=== PATIENT | female | born 1940 | race Caucasian/White ===

== ENCOUNTER 2016-08-18 17:24 | Inpatient (IN) | payer OTHER, MEDICARE ==
[~2016-08-18] VITALS: Ht 162.6 cm; Wt 131.5 kg
[~2016-08-18 17:24] MED LIST: AMLODIPINE10 MG PO; ATORVASTATIN CA40 MG PO; CEPHALEXIN500 MG PO; CIPRO 500MG TA500 MG PO; CLINDAMYCIN150 MG PO; CLOPIDOGREL75 MG PO; COREG 3.125M3.125 MG PO; COREG CR10 MG PO; FLUOXETINE HYDR20 MG PO; FUROSEMIDE20 MG PO; GLUMETZA500 MG PO; LEVOTHYROXINE0.15 M1 PO; PERCOCET 325 MG1 TA2 PO; VALSARTAN320 MG PO; VICTOZA6 MG/ML SC; VITAMIN D1000 IU PO; VITAMIN D50000 IU PO
--- NOTE | 2016-08-18 17:34 | NUR ---
PER PT ARRIVES FROM HOME VIA EMS FOR CHRONIC LLE SWELLING PER PT USUALLY NEEDS ANTIBIOTICS WHEN THIS HAPPENS. PER PT GOING ON X 2 MONTHS AND TRAVELING UP L LEG PT REPORTS VENOUS INSUFFIENCY. BILAT LOWER LEGS SWOLLEN L>R
[2016-08-18] MEDS ORDERED: AMLODIPINE BESY10 M1 PO (19:22)
[2016-08-18] MEDS ORDERED: VALSARTAN320 M1 PO (19:22)
[2016-08-18] MEDS ORDERED: CLOPIDOGREL75 M1 PO (19:23)
[2016-08-18] MEDS ORDERED: LEVOTHYROXINE150 MCG PO (19:23)
[2016-08-18] MEDS ORDERED: METFORMIN HCL500 M5 PO (19:23)
[2016-08-18] MEDS ORDERED: FUROSEMIDE40 M1 PO (19:24)
[2016-08-18] MEDS ORDERED: FLUOXETINE HCL20 M2 PO (19:24)
[2016-08-18] MEDS ORDERED: ATORVASTATIN CA40 M1 PO (19:27)
--- NOTE | 2016-08-18 19:28 | NUR ---
BRENDEN Estrella IN FOR EVAL
--- NOTE | 2016-08-18 19:35 | ED SKIN/ALLERGY COMPLAINT ---
History of Present Illness General Chief Complaint: Lower Extremity Problems Stated Complaint: BIBA LEG PAIN Source: patient, family, old records Exam Limitations: no limitations Vital Signs & Intake/Output Vital Signs & Intake/Output Vital Signs Date Time Temp Pulse Resp B/P Pulse O2 O2 Flow FiO2 Ox Delivery Rate 08/18 2236 96.8 80 18 168/94 93 Room Air 08/18 2118 100 Room Air 08/18 1737 97.4 77 20 133/93 96 Allergies Coded Allergies: latex (Severe, RASH 08/02/15) lactose (Severe, DIARRHEA 08/02/15) Reconcile Medications Amlodipine Besylate 10 MG TABLET 1 TAB PO DAILY BP (Reported) Amoxicillin/Clavulanate Potass (Amox-Clav 875-125 MG Tablet) 875 MG-125 MG TABLET 875 MG PO Q12 skin infection Atorvastatin Calcium 40 MG TABLET 1 TAB PO DAILY CHOLESTEROL (Reported) Carvedilol Phosphate (Coreg Cr) 10 MG CPMP.24HR 1 CAP PO DAILY HEART/BP ( Reported) Clopidogrel Bisulfate (Clopidogrel) 75 MG TABLET 1 TAB PO DAILY BLOOD THINNER (Reported) Ergocalciferol (Vitamin D2) (Vitamin D2) 50,000 UNIT CAPSULE 1 CAP PO AD SUPPLEMENT (Reported) Fluoxetine HCl 20 MG CAPSULE 1 CAP PO DAILY MENTAL HEALTH (Reported) Furosemide 40 MG TABLET 1 TAB PO DAILY DIURETIC (Reported) Levothyroxine Sodium 150 MCG TABLET 1 TAB PO DAILY THYROID (Reported) Liraglutide (Victoza 3-Bang) 0.6 MG/0.1 ML (18 MG/3 ML) PEN.INJCTR 1.2 MG SC DAILY DM (Reported) Metformin HCl (Metformin HCl ER) 500 MG [id number] 1 TAB PO BID DM (Reported) Valsartan 320 MG TABLET 1 TAB PO DAILY BP (Reported) Triage Note: PER PT ARRIVES FROM HOME VIA EMS FOR CHRONIC LLE SWELLING PER PT USUALLY NEEDS ANTIBIOTICS WHEN THIS HAPPENS. Triage Nurses Notes Reviewed? 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 She has had pain redness and swelling for a few days which is getting worse, she denies any fever or flulike illness. She is having several areas of the left lower extremity lateral anterior aspect with open wounds that are oozing serous fluid and sticking to her close. Her sons are here and state that her leg is much more swollen than usual, more red warmth to touch and is moderately painful to palpation. She denies any fever or flulike illness. She has been admitted here in the past several times for same. (XAVIER HARRIS) Past History Travel History Traveled to [place] past 21 day No Medical History Any Pertinent Medical History? 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 No (XAVIER HARRIS) Review of Systems Review of Systems Constitutional: Reports: no symptoms. EENTM: Reports: no symptoms. Respiratory: Reports: no symptoms. Cardiovascular: Reports: no symptoms. GI: Reports: no symptoms. Genitourinary: Reports: no symptoms. Neurological/Psychological: Reports: no symptoms. Hematologic/Endocrine: Reports: no symptoms. Immunologic/Allergic: Reports: no symptoms. All Other Systems: Reviewed and Negative (XAVIER HARRIS) Physical Exam Physical Exam General Appearance: well developed/nourished Respiratory: normal breath sounds, chest non-tender, no respiratory distress Cardiovascular: regular rate/rhythm Comments: Well-developed well-nourished no apparent distress. HEENT: Atraumatic, extraocular motion intact Neck: Supple, no lymphadenopathy Back: Nontender Respiratory: No respiratory distress Abdomen: Obese Extremities: Mild edema right lower extremity 3+ edema pitting left lower extremity with chronic skin changes, skin sloughing, several small open wounds to the anterior and lateral lower leg that is oozing serous fluid. Significant warmth and intense erythema with tenderness along the mid anterior lateral and proximal portion of the lower leg. Neurovascularly intact. Neuro: Alert and oriented x3 Psych: Mood affect normal, normal memory normal judgment. Skin: Warm and dry, no rash on exposed skin (XAVIER HARRIS) Progress Differential Diagnosis: abscess/cellulitis, allergic reaction, anaphylaxis, angioedema, asthma, contact dermatitis, drug reaction, erythema multiforme, lyme disease, meningitis/sepsis, piyriasis rosea, RMSF, scarlet fever, shingles, syphilis/gonococcemia, toxic shock syndrome, urticaria, DVT/PE Plan of Care: Orders Procedure Date/time Status Consistent Carbohydrate 2 08/19 B Active LACTIC ACID 08/18 2230 Active Patient Data 08/19 2211 Active OXYGEN SETUP (GEN) 08/19 1955 Active Saline Lock 08/19 1955 Active Admit to inpatient 08/19 1955 Active Vital Signs 08/19 1955 Active Activity/Ambulation 08/19 1955 Active Code Status 08/19 1955 Active Saline Lock 08/18 1930 Active BLOOD CULTURE 08/18 1930 Active LACTIC ACID 08/18 1930 Complete COMPREHENSIVE METABOLIC PANEL 08/18 1930 Complete CBC WITHOUT DIFFERENTIAL 08/18 1930 Complete EKG 08/18 1930 Active Intake & Output 08/19 1855 Active Laboratory Tests 08/18/162215: Anion Gap 11, Estimated GFR > 60, BUN/Creatinine Ratio 23.3, Glucose 139 H, Lactic Acid 1.3, Calcium 9.2, Total Bilirubin 0.7, AST 15, ALT 38, Alkaline Phosphatase 89, Total Protein 7.0, Albumin 3.9, Globulin 3.1, Albumin/Globulin Ratio 1.3 08/18/162044: CBC w Diff NO MAN DIFF REQ, RBC 5.27, MCV 83.5, MCH 28.5, RDW 13.9, MPV 9.5, Gran % 69.0, Lymphocytes % 20.9, Monocytes % 7.1, Eosinophils % 2.2, Basophils % 0.8, Absolute Granulocytes 6.1, Absolute Lymphocytes 1.9, Absolute Monocytes 0.6 , Absolute Eosinophils 0.2, Absolute Basophils 0.1, PUBS MCHC 34.1 Microbiology 08/18 2044 BLOOD: Blood Culture - RECD 08/18 2029 BLOOD: Blood Culture - RECD Initial ED EKG: NSR, rate (80), no ST T wave changes, abnormal Q waves Prior EKG: unchanged Rhythm Strip: normal sinus rhythm Comments: Treated with 1 g of Ancef IV 40 mg of Lasix IV Elevation of the leg Discussed with Dr. Vu, will admit for cellulitis (XAVIER HARRIS) Departure Departure Disposition: STILL A PATIENT Condition: Stable Clinical Impression Primary Impression: Cellulitis of left lower extremity without foot Secondary Impressions: Edema, lower extremity Qualifiers: Laterality: left Qualified Code: R60.0 - Localized edema Referrals: ELDER VU MD (PCP/Family) Departure Forms: Customer Survey General Discharge Information Prescriptions: Current Visit Scripts Amoxicillin/Clavulanate Potass (Amox-Clav 875-125 MG Tablet) 875 MG PO Q12 #5 TAB Admission Note Spoke With: ELDER VU MD Documentation of Exam: Documentation of any treatments & extenuating circumstances including Concerns Regarding Discharge (functional status, medication knowledge or non-compliance, living conditions, etc.) that warrant an admission rather than observation: Patient with severe edema left lower extremity and cellulitis with open weeping wounds. She requires elevation, IV Lasix, IV antibiotics. She has had this multiple times in the past does not improve on pills alone. (XAVIER HARRIS) PA/LITHOGRAPHIC ETCHER Co-Sign Statement Statement: ED Attending supervision documentation- x I saw and evaluated the patient. I have also reviewed all the pertinent lab results and diagnostic results. I agree with the findings and the plan of care as documented in the PA's/LITHOGRAPHIC ETCHER's documentation. [] I have reviewed the ED Record and agree with the PA's/LITHOGRAPHIC ETCHER's documentation. [] Additions or exceptions (if any) to the PAs/LITHOGRAPHIC ETCHER's note and plan are summarized below: [] (SARAI GARG,TESSA)
--- NOTE | 2016-08-18 19:56 | NUR ---
PT IN CHANGED BY THIS RN AND MST ISABELLA.
[2016-08-18] MEDS ORDERED: VITAMIN D250000 UNIT PO (20:00)
[2016-08-18] MEDS ORDERED: COREG CR10 M1 PO (20:00)
[2016-08-18] MEDS ORDERED: ONETOUCH LANCE1 EACH SC (20:01)
[2016-08-18] MEDS ORDERED: VICTOZA 3-0.6 MG/0.1 SC (20:15)
--- NOTE | 2016-08-18 20:52 | NUR ---
IV ACCESS ESTABLISHED BY FABIOLA MENEZES#22, LABS DRAWN AND SENT (SST, LAV, ROMERO) BLOOD CULTURES COLLECTED AND SENT
[2016-08-18 21:02] LABS: ABSOLUTE EOSINOPHIL COUNT 0.2 /CUMM (0.0-0.7); RBC DISTRIBUTION WIDTH 13.9 % (11.5-14.5)
[2016-08-18 21:04] LABS: ABSOLUTE BASOPHIL COUNT 0.1 /CUMM (0.0-0.2); ABSOLUTE GRANULOCYTE CT 6.1 /CUMM (1.4-6.5); ABSOLUTE LYMPH COUNT 1.9 /CUMM (1.2-3.4); ABSOLUTE MONOCYTE COUNT 0.6 /CUMM (0.10-0.60); BASOPHIL % 0.8 % (0.0-2.0); EOSINOPHIL % 2.2 % (0-5); MEAN CORPUSCULAR HGB 28.5 PG (27.0-31.0); MEAN CORPUSCULAR HGB CONC 34.1 G/DL (33.0-37.0); MEAN CORPUSCULAR VOLUME 83.5 FL (81.0-99.0); MEAN PLATELET VOLUME 9.5 FL (7.4-10.4); RED BLOOD CELL CT 5.27 /CUMM (4.20-5.40); WHITE BLOOD CELL COUNT 8.8 /CUMM (4.8-10.8)
[2016-08-18 21:12] LABS: PLATELET COUNT 195 /CUMM (130-400)
--- NOTE | 2016-08-18 21:17 | NUR ---
PT MEDICATED WITH 40MG LASIX IV AND KEFZOL PER EMAR.
--- NOTE | 2016-08-18 21:18 | NUR ---
PER LAB, SST AND ROMERO NEED TO BE REDRAWN.
--- NOTE | 2016-08-18 22:00 | Admission Certification ---
Admission Certification Certification Statement - As attending physician, I certify that at the time of - admission, based on clinical presentation, severity of - symptoms, need for further diagnostic testing and - therapeutic interventions, and risk of adverse outcomes - without in-hospital treatment, in my clinical assessment, - this patient requires an acute hospital stay for a minimum - of two nights or longer. I have also considered psychsocial - factors such as support system, advanced age, financial - issues, cognitive issues, and failed out-patient treatments, - past re-admission history, safety of patient, and lack of - compliance as applicable. Specific rationale supporting this admission is: Recurrent cellulitis of the left leg not responding to by mouth antibiotics
--- NOTE | 2016-08-18 22:03 | PN- Att Addend ---
Attending Addendum Attending Brief Note 75-year-old white female many comorbidities and has had problems with her left leg swollen and red and open areas was treated with oral antibiotics but it doesn't seem to be getting any better leg is still red and swollen with scabs. Despite the white count being normal H and has a lot of symptoms but will admit get IV antibiotics check leg ultrasound, get a wound consult and keep the leg elevated. Laboratory Tests 08/18 2044 Hematology CBC w Diff NO MAN DIFF REQ WBC (4.8 - 10.8 /CUMM) 8.8 RBC (4.20 - 5.40 /CUMM) 5.27 Hgb (12.0 - 16.0 G/DL) 15.0 Hct (37 - 47 %) 44.0 MCV (81.0 - 99.0 FL) 83.5 MCH (27.0 - 31.0 PG) 28.5 RDW (11.5 - 14.5 %) 13.9 Plt Count (130 - 400 /CUMM) 195 MPV (7.4 - 10.4 FL) 9.5 Gran % (42.2 - 75.2 %) 69.0 Lymphocytes % (20.5 - 51.1 %) 20.9 Monocytes % (1.7 - 9.3 %) 7.1 Eosinophils % (0 - 5 %) 2.2 Basophils % (0.0 - 2.0 %) 0.8 Absolute Granulocytes (1.4 - 6.5 /CUMM) 6.1 Absolute Lymphocytes (1.2 - 3.4 /CUMM) 1.9 Absolute Monocytes (0.10 - 0.60 /CUMM) 0.6 Absolute Eosinophils (0.0 - 0.7 /CUMM) 0.2 Absolute Basophils (0.0 - 0.2 /CUMM) 0.1 PUBS MCHC (33.0 - 37.0 G/DL) 34.1
--- NOTE | 2016-08-18 22:19 | NUR ---
PT HAS A REDRAW SST,ROMERO
--- NOTE | 2016-08-18 22:54 | NUR ---
PT TO ROOM 207 BED 1
--- NOTE | 2016-08-18 22:55 | NUR ---
SEEN BY HOUSE STAFF
--- NOTE | 2016-08-18 22:59 | History & Physical ---
See Addendum JON GARG,JERAMYMaurice 08/18/16 4187: General Information and HPI MD Statement: I have seen and personally examined NUNU JONES and documented this H&P. The patient is a 75 year old F who presented with a patient stated chief complaint of [lower extremity erythema and swelling]. Source of Information: patient, family, old records Exam Limitations: no limitations History of Present Illness: This is a 75-year-old female with past medical history significant for left lower extremity venous insufficiency, diabetes, depression, both thyroidism, alcoholic hepatitis, current cellulitis, CVA in A. fib, hypertension, hyperlipidemia who comes in with chief complaint of worsening swelling and erythema in left lower extremity. Patient's son was at bedside and was able to corroborate much of the history. He wanted to see his mother today and noted that her leg was more "oozing and weepy," than usual. She has chronic erythema and swelling of her left lower extremity. In speaking with the patient, it seems like the erythema and swelling is at her baseline or even less, however she has some open sores and wounds leaking serous fluid which seems to be in new development. Patient denies any fever, shortness of breath, chest pain, change in her bowel movements. The extremity is tender to palpation but other than the increase in secretion patient states she has not noticed any change in her left lower extremity. She states that she has been evaluated by a vascular surgeon and etiology of erythema and swelling was thought to be venous insufficiency. She does not use compression stockings and is not on any suppressive antibiotics. Allergies/Medications Allergies: Coded Allergies: latex (Severe, RASH 08/02/15) lactose (Severe, DIARRHEA 08/02/15) Home Med list Amlodipine Besylate 10 MG TABLET 1 TAB PO DAILY BP (Reported) Atorvastatin Calcium 40 MG TABLET 1 TAB PO DAILY CHOLESTEROL (Reported) Carvedilol Phosphate (Coreg Cr) 10 MG CPMP.24HR 1 CAP PO DAILY HEART/BP ( Reported) Clopidogrel Bisulfate (Clopidogrel) 75 MG TABLET 1 TAB PO DAILY BLOOD THINNER (Reported) Ergocalciferol (Vitamin D2) (Vitamin D2) 50,000 UNIT CAPSULE 1 CAP PO AD SUPPLEMENT (Reported) Fluoxetine HCl 20 MG CAPSULE 1 CAP PO DAILY MENTAL HEALTH (Reported) Furosemide 40 MG TABLET 1 TAB PO DAILY DIURETIC (Reported) Levothyroxine Sodium 150 MCG TABLET 1 TAB PO DAILY THYROID (Reported) Liraglutide (Victoza 3-Bang) 0.6 MG/0.1 ML (18 MG/3 ML) PEN.INJCTR 1.2 MG SC DAILY DM (Reported) Metformin HCl (Metformin HCl ER) 500 MG [id number] 1 TAB PO BID DM (Reported) Valsartan 320 MG TABLET 1 TAB PO DAILY BP (Reported) Compliance With Home Meds: UNKNOWN Past History Travel History Traveled to [place] past 21 day No Medical History Neurological: CVA EENT: NONE Cardiovascular: AFIB, hypertension, hyperlipidemia Respiratory: NONE Gastrointestinal: alcoholic hepatitis Hepatic: NONE Renal: NONE Musculoskeletal: CELLULITIS Psychiatric: depression Endocrine: diabetes, hypothyroidism Blood Disorders: NONE Cancer(s): NONE 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 self Services at Home: NO SERVICES AT THIS TIME Primary Language: Iranian Functional Ability ADLs Independent: dressing, eating, toileting, bathing. Ambulation: walker IADLs Independent: shopping, housework, finances, food prep, telephone, transportation , medication admin. Review of Systems Review of Systems Constitutional: Reports: weakness. Denies: chills, fever, malaise. EENTM: Reports: no symptoms. Cardiovascular: Reports: peripheral edema. Denies: chest pain, palpitations. Respiratory: Denies: cough, short of breath. GI: Denies: abdominal pain, constipation, nausea, vomiting. Genitourinary: Reports: no symptoms. Musculoskeletal: Reports: muscle pain, muscle stiffness. Skin: Denies: change in skin color, erythema, lesions, rash. Neurological/Psychological: Reports: anxiety. Exam & Diagnostic Data Last 24 Hrs of Vital Signs/I&O Vital Signs Date Time Temp Pulse Resp B/P Pulse O2 O2 Flow FiO2 Ox Delivery Rate 08/19 0136 80 150/100 08/19 0054 Room Air 08/19 0054 97.6 85 20 150/115 92 Room Air 08/18 2236 96.8 80 18 168/94 93 Room Air 08/18 2118 100 Room Air 08/18 1737 97.4 77 20 133/93 96 Intake & Output 08/19 0800 08/19 0000 08/18 1600 Intake Total Output Total Balance Patient 131.542 kg Weight Physical Exam General Appearance Alert, Oriented X3, Cooperative, No Acute Distress Skin significant swelling, erythema, scaly appearance of left lower extremity. In addition on lateral aspect of her calf there seems to be some crusting and oozing of denuded skin HEENT Atraumatic, PERRLA, EOMI Neck Supple Cardiovascular Regular Rate, Normal S1, Normal S2, No Murmurs Lungs Clear to Auscultation Abdomen Soft, No Tenderness Extremities left lower extremity is markedly swollen, erythematous, slightly warm to palpation. There are areas of denuded skin and some clear serous drainage. Last 24 Hrs of Labs/Codey: Laboratory Tests 08/19/16 0144: Lactic Acid 1.5 08/18/162215: Anion Gap 11, Estimated GFR > 60, BUN/Creatinine Ratio 23.3, Glucose 139 H, Lactic Acid 1.3, Calcium 9.2, Total Bilirubin 0.7, AST 15, ALT 38, Alkaline Phosphatase 89, Total Protein 7.0, Albumin 3.9, Globulin 3.1, Albumin/Globulin Ratio 1.3 08/18/162044: CBC w Diff NO MAN DIFF REQ, RBC 5.27, MCV 83.5, MCH 28.5, RDW 13.9, MPV 9.5, Gran % 69.0, Lymphocytes % 20.9, Monocytes % 7.1, Eosinophils % 2.2, Basophils % 0.8, Absolute Granulocytes 6.1, Absolute Lymphocytes 1.9, Absolute Monocytes 0.6 , Absolute Eosinophils 0.2, Absolute Basophils 0.1, PUBS MCHC 34.1 Microbiology 08/18 2044 BLOOD: Blood Culture - RECD 08/18 2029 BLOOD: Blood Culture - RECD Assessment/Plan Assessment: This is a 75-year-old female past medical history significant for cellulitis, left lower extremity venous insufficiency, CVA, A. fib, hypertension, hyperlipidemia, hypothyroidism, anxiety, who presents with chief complaint of worsening erythema and drainage of her left lower extremity. ED workup showed: Vitals: 97.4, 77, 20, 133/90, 96. CBC with no white count PLAN: 1. Erythematous swollen left lower extremity with serous drainage: Patient does have erythema and warmth of the left lower extremity. She does have skin breakdown which could serve as a source of infection. However per patient, the erythema, swelling is either at baseline or even lower. She is afebrile, with no white count. Likely large part of her pathology is secondary to venous insufficiency/stasis. * Cefazolin 2 g IV every 8; consider stopping antibiotics if she continues to be afebrile with normal white count * Wound care consult * Consider increasing Lasix 2. Hypertension, hyperlipidemia, A. fib: * Continue Plavix * Continue statin * Continue carvedilol * Continue furosemide 40 mg by mouth * Continue losartan * Continue amlodipine 3. Hypothyroidism: * Continue Synthroid FULL CODE Heart healthy Chemical dvt ppx As Ranked By This Provider Problem List: 1. Cellulitis 2. Leg erythema 3. Hypothyroid 4. MRSA (methicillin resistant staph aureus) culture positive 5. Open wound 6. Edema, lower extremity Qualifiers Laterality: left Qualified Code: R60.0 - Localized edema Core Measures/Miscellaneous Acute Coronary Syndrome ACS Diagnosis: No Cerebrovascular Accident CVA/TIA Diagnosis: No Congestive Heart Failure CHF Diagnosis: No Venous Thromboembolism VTE Risk Factors: Acute medical illness, Age > 40 No Mech VTE prophylaxis d/t: No contraindications No VTE Pharm Prophylaxis d/t: No contraindications VTE Diagnosis: No VTE Type: NONE VTE Confirmed by (Test): NONE Severe Sepsis Severe Sepsis Present: No Septic Shock Septic Shock Present: No Miscellaneous Documentation Attending Case Discussed With: ELDER BRANDON MD Primary Care Physician: ELDER BRANDON MD Patient sees these Specialists unknown Level of Patient Care: General Medicine CHRISTIANO GARGGM 08/18/16 0053: Resident Review Statement Resident Statement: examined this patient, discussed with production intern, agreed with production intern, discussed with family, reviewed EMR data (avail), discussed with nursing , discussed with case mgmt, reviewed images, amended to note Other Findings: Lizbeth is 75-year-old woman with medical history of proximal atrial fibrillation on anticoagulation due to fall risk, CVA hypertension diabetes hyperlipidemia hypothyroidism bilateral iliac aneurysmal disease, venous insufficiency, recurrent cellulitis presents emergency department after her son visited her today and noticed that there was increasing erythematous changes and weeping from the skin breakdown on her left lower extremity. The patient denies any fevers or systemic signs of infection. She is nontoxic appearing. Vital signs are stable. Physical examination reveals morbidly obese woman with a left lower extremity that is markedly swollen compared to the right lower extremity, initially there is erythematous skin changes scaling and serous fluid weeping from multiple areas of skin breakdown. I do not suspect this patient has cellulitis at this time, however the erythema and warmth around the extremity is concerning, especially given skin breakdown may definitely serve as a superimposed source of infection. The fluid draining from the lesions is serous and does not appear to be purulent. - Problems - Chronic dependent edema 2/2 venous insufficiency with skin breakdown Paroxysmal Afib CVA - Plan - Cefazolin 2 g IV every 8 hours Discontinue antibiotics if morning labs are normal, and she has not spiked fever Wound Care consultation Suggest compression stockings and local wound care Consider increasing Lasix dosage Continue carvedilol, statin, antihypertensive regimen, Plavix DVT prophylaxis Lovenox Full code
--- NOTE | 2016-08-18 23:01 | NUR ---
THIS RN TRIED TO CALL AND GIVE REPORT TO THE RN AND SEND THE PT WHEN RN RECIEVING REPORT WAS READY AND THIS RN WAS FIRMLY TOLD BY [employer] DEVELOPER VAN THAT THE CHARGE WOULD CALL BACK WHEN HE GETS TIME, SHE DOESNT KNOW HOW LONG OR ANY OTHER INFORMTATION
--- NOTE | 2016-08-18 23:32 | NUR ---
THIS RN RECIEVED REPORT FROM ER EVENING RN. THIS RN TO ROOM, PATIENT ALERT AND ORIENTED X 4, LLE NOTED W/ YELLOW/CLEAR DRAINAGE AND FEW SCABBED AREAS. PATIENT REPORTING HX CHRONIC SWELLING ON BILATERAL LOWER EXT, WALKER DEPENDENT AT BASELINE, REPORTS LIVES ALONE. PATIENT DENIES PAIN TO LLE, DENIES PAIN W/ PALP. REPORT TO JOHN HICKS ON FLOOR.
[2016-08-19 00:54] VITALS: BP 150/115
--- NOTE | 2016-08-19 04:37 | NUR ---
LATE ENTRY: NSG NOTE: PT ARRIVED TO FLOOR FROM ER. PT AWAKE, A/OX3, ON ROOM AIR, IV SITE INTACT, CELLULITIS TO LLE, OPEN/SCABBED AREAS NOTED WITH SEROUS DRAINAGE, VITALS OBTAINED AND STABLE, PT ORIENTED TO ROOM AND CALL OSMAN WITHIN REACH. WILL CONTINUE TO MONITOR.
[2016-08-19 06:32] VITALS: BP 141/78
--- NOTE | 2016-08-19 07:30 | PN- Housestaff ---
Subjective Follow-up For: Left Lower extremity cellulitis Subjective: Patient was seen and examined this morning, she was sitting comfortably on bed having Breakfast. She denied fever, chills. Patient reported leg pain on ambulation, uses walker, denied any pain on rest. Patient reported that her legs has been the same size and erythema but recently she started to notice weeping. Patient denied shortness of breath, cough, abdominal pain, nausea or vomiting, change in bowel habits or urinary symptoms. Patient was advised to lift her legs. Review of Systems Constitutional: Reports: see HPI. Objective Last 24 Hrs of Vital Signs/I&O Vital Signs Date Time Temp Pulse Resp B/P Pulse O2 O2 Flow FiO2 Ox Delivery Rate 08/19 0941 70 08/19 0940 70 142/80 08/19 0632 98.1 70 18 141/78 95 Room Air 08/19 0136 80 150/100 08/19 0054 Room Air 08/19 0054 97.6 85 20 150/115 92 Room Air 08/18 2236 96.8 80 18 168/94 93 Room Air 08/18 2118 100 Room Air 08/18 1737 97.4 77 20 133/93 96 Intake & Output 08/19 1600 08/19 0800 08/19 0000 Intake Total 580 Output Total Balance 580 Intake, IV 100 Intake, Oral 480 Number 1 Bowel Movements Patient 131.542 kg Weight Physical Exam General Appearance: Alert, Oriented X3, Cooperative, No Acute Distress Skin: No Rashes, No Breakdown, No Significant Lesion HEENT: Atraumatic, PERRLA, EOMI, Mucous Membr. moist/pink Neck: Supple Cardiovascular: Normal S1, Normal S2, No Murmurs, irregular rhythm Lungs: Clear to Auscultation, Normal Air Movement Abdomen: Normal Bowel Sounds, Soft, No Tenderness Neurological: Normal Speech, Strength at 5/5 X4 Ext, Normal Tone, Sensation Intact, Cranial Nerves 3-12 NL, Reflexes 2+ Extremities: No Clubbing, No Cyanosis, Normal Pulses, left leg is chronically bigger than right leg, erythema was noticed, warm, multiple old wounds with crust, oozes serous fluid but no bleeding. Assessment/Plan Assessment: Patient is 75-year-old female with PMH for cellulitis, left lower extremity venous insufficiency, CVA, A. fib not on anticoagulation for fall risk, hypertension, hyperlipidemia, hypothyroidism, anxiety, who presents with chief complaint of worsening erythema and drainage of her left lower extremity. On admission Vitals: 97.4, 77, 20, 133/90, 96. CBC with no white count Problem list 1. Left lower extremity cellulitis * Continue Cefazolin 2 g IV every 8 * Wound care consult was placed * Continue Lasix 40 mg daily, patient has history of dizziness * No signs of DVT, no calf tenderness, Homans sign negative 2. Hypertension, hyperlipidemia, A. fib not on chronic anticoagulant: * Continue Plavix * Continue statin * Continue carvedilol * Continue furosemide 40 mg by mouth * Continue losartan * Continue amlodipine 3. Hypothyroidism: * Continue Synthroid FULL CODE Diet Heart healthy DVT prophylaxis Lovenox Consultation PT, wound care Problem List: 1. Cellulitis of left lower extremity without foot Pain Ratin Pain Location: Left lower extremity on ambulation Pain Goal: Pain 4 or less Pain Plan: Acetaminophen 650 every 6 when necessary Tomorrow's Labs & Rationales: None
[2016-08-19 08:47] LABS: ABSOLUTE BASOPHIL COUNT 0 /CUMM (0.0-0.2); ABSOLUTE EOSINOPHIL COUNT 0.2 /CUMM (0.0-0.7); ABSOLUTE GRANULOCYTE CT 6.1 /CUMM (1.4-6.5); ABSOLUTE MONOCYTE COUNT 0.8 /CUMM (0.10-0.60); BASOPHIL % 0.2 % (0.0-2.0); EOSINOPHIL % 2.2 % (0-5); GRANULOCYTE % 67.3 % (42.2-75.2); MEAN CORPUSCULAR HGB 28.3 PG (27.0-31.0); MEAN CORPUSCULAR HGB CONC 33.2 G/DL (33.0-37.0); MEAN CORPUSCULAR VOLUME 85.1 FL (81.0-99.0); MEAN PLATELET VOLUME 9.3 FL (7.4-10.4); PLATELET COUNT 186 /CUMM (130-400); RBC DISTRIBUTION WIDTH 13.7 % (11.5-14.5); RED BLOOD CELL CT 5.05 /CUMM (4.20-5.40)
--- NOTE | 2016-08-19 11:36 | PN- Att Addend ---
Attending Addendum Attending Brief Note Patient sitting at the edge of the bed, states the leg feels a little better but doesn't look much more different to me. Vital signs are stable she's a febrile no other changes on physical we will continue the IV antibiotics. The air cargo specialist to see the patient today for more treatments to the leg Current Medications Sig/Cristine Start time Last Medication Dose Route Stop Time Status Admin Amlodipine Besylate 10 MG DAILY 08/19 1000 AC 08/19 PO 0940 Atorvastatin Calcium 40 MG 1700 08/19 1700 AC PO Carvedilol 6.25 MG BID 08/18 2359 AC 08/19 PO 0941 Cefazolin Sodium 2 GM IQ8 08/19 0000 AC 08/19 N/A 1 UNIT IV 0939 Cefazolin Sodium 0 .STK-MED ONE 08/18 2114 DC .ROUTE Cefazolin Sodium 1,000 MG ONCE ONE 08/18 1944 DC 08/18 IV 08/18 Clopidogrel Bisulfate 75 MG DAILY 08/19 1000 AC 08/19 PO 0940 Enoxaparin Sodium 40 MG DAILY 08/19 1000 AC 08/19 SC 0941 Fluoxetine HCl 20 MG DAILY 08/19 1000 AC 08/19 PO 0941 Furosemide 40 MG DAILY 08/19 1000 AC 08/19 PO 0939 Furosemide 0 .STK-MED ONE 08/18 2114 DC IV Furosemide 40 MG ONCE ONE 08/18 1944 DC 08/18 IV 08/18 Insulin Aspart 0 TIDAC 08/19 0800 AC 08/19 SC 0938 Levothyroxine Sodium 0.15 MG DAILY AC 08/19 0700 AC 08/19 PO 0621 Losartan Potassium 50 MG DAILY 08/19 1000 AC 08/19 PO 0940 Laboratory Tests 08/19/16 0650: Anion Gap 12, Estimated GFR > 60, BUN/Creatinine Ratio 21.4, CBC w Diff NO MAN DIFF REQ, RBC 5.05, MCV 85.1, MCH 28.3, RDW 13.7, MPV 9.3, Gran % 67.3, Lymphocytes % 21.8, Monocytes % 8.5, Eosinophils % 2.2, Basophils % 0.2, Absolute Granulocytes 6.1, Absolute Lymphocytes 2.0, Absolute Monocytes 0.8 H, Absolute Eosinophils 0.2, Absolute Basophils 0, PUBS MCHC 33.2 08/19/16 0144: Lactic Acid 1.5 08/18/16 2216: Anion Gap 11, Estimated GFR > 60, BUN/Creatinine Ratio 23.3, Glucose 139 H, Lactic Acid 1.3, Calcium 9.2, Total Bilirubin 0.7, AST 15, ALT 38, Alkaline Phosphatase 89, Total Protein 7.0, Albumin 3.9, Globulin 3.1, Albumin/Globulin Ratio 1.3 08/18/162044: CBC w Diff NO MAN DIFF REQ, RBC 5.27, MCV 83.5, MCH 28.5, RDW 13.9, MPV 9.5, Gran % 69.0, Lymphocytes % 20.9, Monocytes % 7.1, Eosinophils % 2.2, Basophils % 0.8, Absolute Granulocytes 6.1, Absolute Lymphocytes 1.9, Absolute Monocytes 0.6 , Absolute Eosinophils 0.2, Absolute Basophils 0.1, PUBS MCHC 34.1 Microbiology Date/Time Procedure - Status Source Growth 08/18 2044 Blood Culture - RECD BLOOD 08/18 2029 Blood Culture - RECD BLOOD Vital Signs Date Time Temp Pulse Resp B/P Pulse O2 O2 Flow FiO2 Ox Delivery Rate 08/19 0941 70 08/19 0940 70 142/80 08/19 0632 98.1 70 18 141/78 95 Room Air
--- NOTE | 2016-08-19 15:14 | NUR ---
WOUND CARE: REQUESTED BY MEDICAL STAFF TO EVALUATE PT FOR SKIN ALTERATION PRESENT ON ADMISSION TO LEFT LOWER LEG SECONDARY TO CELLULITIS INFECTION - PT KNOWN TO THIS RADIAL DRILL PRESS SET UP OPERATOR FROM [facility] IN PAST FOR TREATMENT OF VENOUS STASIS ULCERATIONS - LEFT LOWER LEG PRESENTS WITH FULL VARYING FULL AND PARTIAL THICKNESS WOUNDS CLUSTERED 10X10 CM WITH PATCHES OF DRY SCALY SCABBED SKIN - PERIWOUND ERYTHEMA NO WARMTH FROM ANKLE EXTENDING UP TOWARDS KNEE WITH EDEMA - PT REPORTS SHE HAS BEEN UNABLE TO APPLY COMPRESSION SOCKS DUE TO EDEMA AND INABLITY TO BEND OVER IT CAUSES EXCESS PRESSURE ON HER BLADDER RESULTING IN INCONTINENCE OF URINE - RECOMMENDATION: CLEANSE LLL WITH NS FB XEROFORM GAUZE AND KERLIX DAILY - NOTCH FOOT OF BED FOR ELEVATION ABOVE HEART LEVEL - ONCE CELLULITIS RESOLVED, PT WOULD BENEFIT FROM MULTILAYER COMPRESSION WRAPS FOR EDEMA CONTROL, AND F/U IN [facility] AFTER DC
[2016-08-19 15:27] VITALS: BP 140/70
[2016-08-19 23:38] VITALS: BP 135/72
[2016-08-20 07:34] VITALS: BP 135/75
--- NOTE | 2016-08-20 08:08 | PN- Att Addend ---
Attending Addendum Attending Brief Note Covering attending note. Patient is resting comfortably in bed pain and swelling of the left leg is markedly decreased with elevation. Currently on antibiotics Current Medications Sig/Cristine Start time Last Medication Dose Route Stop Time Status Admin Acetaminophen 650 MG Q6PRN PRN 08/19 1330 AC PO Amlodipine Besylate 10 MG DAILY 08/19 1000 AC 08/19 PO 0940 Atorvastatin Calcium 40 MG 1700 08/19 1700 AC 08/19 PO 1720 Carvedilol 6.25 MG BID 08/18 2359 AC 08/19 PO 2141 Cefazolin Sodium 2 GM IQ8 08/19 0000 AC 08/20 N/A 1 UNIT IV 0006 Clopidogrel Bisulfate 75 MG DAILY 08/19 1000 AC 08/19 PO 0940 Enoxaparin Sodium 40 MG DAILY 08/19 1000 AC 08/19 SC 0941 Fluoxetine HCl 20 MG DAILY 08/19 1000 AC 08/19 PO 0941 Furosemide 40 MG DAILY 08/19 1000 AC 08/19 PO 0939 Influenza Virus 0.5 ML ONCE ONE 08/19 1430 DC 08/19 Vaccine IM 08/19 1431 1550 Insulin Aspart 0 TIDAC 08/19 0800 AC 08/19 SC 1720 Levothyroxine Sodium 0.15 MG DAILY AC 08/19 0700 AC 08/20 PO 0544 Losartan Potassium 50 MG DAILY 08/19 1000 AC 08/19 PO 0940 Patient Medication 1 ED .STK-MED ONE 08/19 1359 DC Teaching ED 08/19 1400 Vital Signs Date Time Temp Pulse Resp B/P Pulse O2 O2 Flow FiO2 Ox Delivery Rate 08/20 0734 98.1 65 20 135/75 92 08/19 2338 98.7 74 20 135/72 92 Room Air 08/19 2141 74 135/72 08/19 1527 98.1 75 20 140/70 95 Room Air 08/19 0941 70 08/19 0940 70 142/80 Intake & Output 08/20 1600 08/20 0800 08/20 0000 Intake Total 240 480 Output Total 350 Balance 240 130 Intake, Oral 240 480 Output, Urine 350 Patient 290 lb Weight Examination patient is awake alert oriented Neck is supple S1-S2 is normal Lungs are clear Abdomen is soft nontender bowel sounds are present Both extremities are of chronic skin changes with the appropriate cleaning off the skin with decrease in edema. The left leg is wrapped in bandage Assessment Cellulitis of the leg left Continue with IV antibiotics and elevation. DVT prophylaxis
--- NOTE | 2016-08-20 08:22 | PN- Housestaff ---
Subjective Follow-up For: Left lower extremity cellulitis Subjective: Patient seen and examined. She is seen sitting upright in bed resting comfortably. She appears to be in no acute distress. There is a adhesive bonding machine operator at her bedside whom is in regards to her care. Patient reports that the swelling and pain in her left lower extremity have markedly improved since admission. Her only other complaint is a small headache. Additionally she denies any fever, chills, chest pain, palpitations, shortness of breath, cough, nausea, vomiting, diarrhea. No overnight events reported. Review of Systems Constitutional: Reports: see HPI. Objective Last 24 Hrs of Vital Signs/I&O Vital Signs Date Time Temp Pulse Resp B/P Pulse O2 O2 Flow FiO2 Ox Delivery Rate 08/20 1031 65 135/75 08/20 1030 65 135/75 08/20 1030 65 135/75 08/20 0734 98.1 65 20 135/75 92 08/19 2338 98.7 74 20 135/72 92 Room Air 08/19 2141 74 135/72 08/19 1527 98.1 75 20 140/70 95 Room Air Intake & Output 08/20 1600 08/20 0800 08/20 0000 Intake Total 240 480 Output Total 350 Balance 240 130 Intake, Oral 240 480 Number 1 Bowel Movements Output, Urine 350 Patient 131.542 kg Weight Physical Exam General Appearance: Alert, Oriented X3, Cooperative, No Acute Distress Other Physical Findings: General -well-developed, well-nourished morbidly obese elderly woman in no acute distress HEENT - NCAT, PERRL, EOMI, anicteric sclera CVS - S1, S2 w/o m/g/r Resp - CTA bilaterally w/o wheezing/rhonchi/crackles GI - Soft, nontender, nondistended, bowel sounds intact Neuro - Awake and alert, CN II - XII grossly inact Ext - normal pulses, no cyanosis/clubbing/edema, left lower extremity wrapped in a sterile surgical dressing without any obvious drainage, left foot appears dry with no obvious open wounds Current Medications: Current Medications Sig/Cristine Start time Last Medication Dose Route Stop Time Status Admin Acetaminophen 650 MG Q6PRN PRN 08/19 1330 AC PO Amlodipine Besylate 10 MG DAILY 08/19 1000 AC 08/20 PO 1031 Atorvastatin Calcium 40 MG 1700 08/19 1700 AC 08/19 PO 1720 Carvedilol 6.25 MG BID 08/18 2359 AC 08/20 PO 1030 Cefazolin Sodium 2 GM IQ8 08/19 0000 AC 08/20 N/A 1 UNIT IV 0834 Clopidogrel Bisulfate 75 MG DAILY 08/19 1000 AC 08/20 PO 1031 Enoxaparin Sodium 40 MG DAILY 08/19 1000 AC 08/20 SC 1031 Fluoxetine HCl 20 MG DAILY 08/19 1000 AC 08/20 PO 1031 Furosemide 40 MG DAILY 08/19 1000 AC 08/20 PO 1030 Influenza Virus 0.5 ML ONCE ONE 08/19 1430 DC 08/19 Vaccine IM 08/19 1431 1550 Insulin Aspart 0 TIDAC 08/19 0800 AC 08/20 SC 0834 Levothyroxine Sodium 0.15 MG DAILY AC 08/19 0700 AC 08/20 PO 0544 Losartan Potassium 50 MG DAILY 08/19 1000 AC 08/20 PO 1030 Patient Medication 1 ED .STK-MED ONE 08/19 1359 DC Teaching ED 08/19 1400 Assessment/Plan Assessment: Patient is quite content with her current care and reports marked improvement of her clinical condition. Her only complaint is a small headache which she is not too worried about. She is clinically improving on intravenous antibiotics and remained afebrile without leukocytosis. Problem list: -Left lower extremity cellulitis -Chronic venous insufficiency -History of CVA -History of atrial fibrillation, not on antegrade relation to 2 falls -Hypertension -Hyperlipidemia -Hypothyroidism -Anxiety Plan: -General medicine -Cefazolin 2 g IV every 8 hours -Continue all home meds -PT assessment -Follow-up blood cultures -Pain pathway -DVT prophylaxis -Full code Problem List: 1. Cellulitis Pain Ratin Pain Location: None Pain Goal: Remain pain free Pain Plan: As noted in plan Tomorrow's Labs & Rationales: None
[2016-08-20 14:36] VITALS: BP 110/70
[2016-08-20 22:09] VITALS: BP 150/88
[2016-08-21 06:38] VITALS: BP 148/79
--- NOTE | 2016-08-21 08:26 | PN- Housestaff ---
Subjective Follow-up For: Left Lower extremity cellulitis Subjective: patient was seen and examined, vital signs stable, no new complaints. Review of Systems Constitutional: Reports: see HPI. Objective Last 24 Hrs of Vital Signs/I&O Vital Signs Date Time Temp Pulse Resp B/P Pulse O2 O2 Flow FiO2 Ox Delivery Rate 08/21 0832 70 148/79 08/21 0832 70 148/79 08/21 0831 70 148/79 08/21 0638 97.9 70 20 148/79 92 Room Air 08/20 2209 98.9 72 19 150/88 96 08/20 2120 150/88 08/20 1515 18 93 Room Air 08/20 1436 98.6 65 20 110/70 90 Room Air Intake & Output 08/21 1600 08/21 0800 08/21 0000 Intake Total 120 Output Total Balance 120 Intake, Oral 120 Number 1 1 Bowel Movements Physical Exam General Appearance: Alert, Oriented X3, Cooperative, No Acute Distress Skin: No Rashes HEENT: Atraumatic, PERRLA, EOMI, Mucous Membr. moist/pink Neck: Supple Cardiovascular: Regular Rate, Normal S1, Normal S2, No Murmurs Lungs: Clear to Auscultation, Normal Air Movement Abdomen: Normal Bowel Sounds, Soft, No Tenderness Neurological: Normal Gait, Normal Speech, Strength at 5/5 X4 Ext, Normal Tone, Sensation Intact, Cranial Nerves 3-12 NL, Reflexes 2+ Extremities: No Clubbing, No Cyanosis, No Edema, Normal Pulses Assessment/Plan Assessment: Patient is quite content with her current care and reports marked improvement of her clinical condition. Her only complaint is a small headache which she is not too worried about. She is clinically improving on intravenous antibiotics and remained afebrile without leukocytosis. Problem list: -Left lower extremity cellulitis -Chronic venous insufficiency -History of CVA -History of atrial fibrillation, not on antegrade relation to 2 falls -Hypertension -Hyperlipidemia -Hypothyroidism -Anxiety Plan: -Switch to oral and hepatic Augmentin -Continue all home meds -PT assessment -Follow-up blood cultures -Pain pathway -DVT prophylaxis -Full code Problem List: 1. Cellulitis Pain Ratin Pain Location: None Pain Goal: Pain 4 or less Pain Plan: Mild pain pathway Tomorrow's Labs & Rationales: None
--- NOTE | 2016-08-21 08:38 | PN- Att Addend ---
Attending Addendum Attending Brief Note Covering attending note. Patient is comfortable much improved the redness and swelling and weeping in the left leg is markedly decreased. Current Medications Sig/Cristine Start time Last Medication Dose Route Stop Time Status Admin Acetaminophen 650 MG .STK-MED ONE 08/20 1231 DC PO 08/20 1232 Acetaminophen 650 MG Q6PRN PRN 08/19 1330 AC 08/21 PO 0318 Amlodipine Besylate 10 MG DAILY 08/19 1000 AC 08/21 PO 0832 Atorvastatin Calcium 40 MG 1700 08/19 1700 AC 08/20 PO 1803 Carvedilol 6.25 MG BID 08/18 2359 AC 08/21 PO 0831 Cefazolin Sodium 2 GM IQ8 08/19 0000 AC 08/21 N/A 1 UNIT IV 0827 Clopidogrel Bisulfate 75 MG DAILY 08/19 1000 AC 08/21 PO 0832 Enoxaparin Sodium 40 MG DAILY 08/19 1000 AC 08/21 SC 0830 Fluoxetine HCl 20 MG DAILY 08/19 1000 AC 08/21 PO 0833 Furosemide 40 MG DAILY 08/19 1000 AC 08/21 PO 0832 Insulin Aspart 0 TIDAC 08/19 0800 AC 08/21 SC 0826 Levothyroxine Sodium 0.15 MG DAILY AC 08/19 0700 AC 08/21 PO 0541 Losartan Potassium 50 MG DAILY 08/19 1000 AC 08/21 PO 0832 Vital Signs Date Time Temp Pulse Resp B/P Pulse O2 O2 Flow FiO2 Ox Delivery Rate 08/21 0832 70 148/79 08/21 0832 70 148/79 08/21 0831 70 148/79 08/21 0638 97.9 70 20 148/79 92 Room Air 08/20 2209 98.9 72 19 150/88 96 08/20 2120 150/88 08/20 1515 18 93 Room Air 08/20 1436 98.6 65 20 110/70 90 Room Air 08/20 1031 65 135/75 08/20 1030 65 135/75 08/20 1030 65 135/75 Intake & Output 08/21 1600 08/21 0800 08/21 0000 Intake Total 120 Output Total Balance 120 Intake, Oral 120 Number 1 Bowel Movements On examination Awake alert oriented 3. Neck is supple JVD is not raised S1-S2 is normal Lungs air entry equal bilaterally no crepitations or rhonchi Abdomen is soft nontender bowel sounds are present Next 70 shows marked reduction in edema and swelling marked reduction in erythema and marked reduction and weeping of the right leg. Assessment Cellulitis of the lower extremities the left leg Switch from IV antibiotics to by mouth Augmentin Activity prophylaxis Start ambulating the patient Prepare for discharge
[2016-08-21 15:02] VITALS: BP 150/72
[2016-08-21 21:58] VITALS: BP 140/92
[2016-08-22 07:12] VITALS: BP 162/94
--- NOTE | 2016-08-22 07:34 | PN- Housestaff ---
Subjective Follow-up For: Left Lower extremity cellulitis Subjective: Patient was seen and examined today, she was laying comfortably on bed, patient denied any fever or chills, no lower extremity pain, her left lower extremity wrapped with gauze, swelling and redness seem to be improved. Patient denied any chest pain, shortness of breath, abdominal pain, urinary symptoms. Patient tolerates oral intake well, has urine and stool incontinence for about a year. Patient wants to be discharged today. Review of Systems Constitutional: Reports: see HPI. Objective Last 24 Hrs of Vital Signs/I&O Vital Signs Date Time Temp Pulse Resp B/P Pulse O2 O2 Flow FiO2 Ox Delivery Rate 08/22 1033 60 168/88 08/22 1033 60 168/88 08/22 1033 60 16808/22 0712 97.7 60 20 162/94 96 08/21 2158 98.7 67 20 140/92 92 08/21 2112 64 140/92 Intake & Output 08/22 1600 08/22 0800 08/22 0000 Intake Total 480 240 Output Total Balance 480 240 Intake, Oral 480 240 Number 1 Bowel Movements Physical Exam General Appearance: Alert, Oriented X3, Cooperative, No Acute Distress Skin: No Rashes HEENT: Atraumatic, PERRLA, EOMI, Mucous Membr. moist/pink Neck: Supple Cardiovascular: Regular Rate, Normal S1, Normal S2, No Murmurs Lungs: Clear to Auscultation, Normal Air Movement Abdomen: Normal Bowel Sounds, Soft, No Tenderness Neurological: Normal Gait, Normal Speech, Strength at 5/5 X4 Ext, Normal Tone, Sensation Intact, Cranial Nerves 3-12 NL, Reflexes 2+ Extremities: No Clubbing, No Cyanosis, No Edema, Normal Pulses Assessment/Plan Assessment: Patient is 75-year-old female with PMH for cellulitis, left lower extremity venous insufficiency, CVA, A. fib not on anticoagulation for fall risk, hypertension, hyperlipidemia, hypothyroidism, anxiety, who presents with chief complaint of worsening erythema and drainage of her left lower extremity. Problem list: -Left lower extremity cellulitis -Chronic venous insufficiency -History of CVA -History of atrial fibrillation, not on antegrade relation to 2 falls -Hypertension -Hyperlipidemia -Hypothyroidism -Anxiety Plan: -Continue oral Augmentin for 3 days -Continue all home meds -PT assessment -Follow-up blood cultures -Pain pathway -DVT prophylaxis -Full code -Patient will be discharged today with home health services Problem List: 1. Cellulitis Pain Ratin Pain Location: none Pain Goal: Pain 4 or less Pain Plan: mild pain pathway Tomorrow's Labs & Rationales: none
[2016-08-22 10:33] VITALS: BP 168/88
[2016-08-22] MEDS ORDERED: AMOX-CLAV 875-1 EACH PO (11:47)
--- NOTE | 2016-08-22 11:50 | Patient Discharge Instructions ---
Discharge Instructions General Discharge Information You were seen/treated for: Left leg cellulitis Special Instructions: -Please follow-up with your primary care physician within 1 week after discharge -Please follow up with wound center after discharge Acute Coronary Syndrome Inclusion Criteria At DC or during hospital stay patient has or had the following: ACS DIAGNOSIS No Discharge Core Measures Meds if any: Prescribed or Continued at Discharge Meds if any: NOT Prescribed or Continued at Discharge Congestive Heart Failure Inclusion Criteria At DC or during hospital stay patient has or had the following: CHF DIAGNOSIS No Discharge Core Measures Meds if any: Prescribed or Continued at Discharge Meds if any: NOT Prescribed or Continued at Discharge Cerebrovascular accident Inclusion Criteria At DC or during hospital stay patient has or had the following: CVA/TIA Diagnosis No Discharge Core Measures Meds if any: Prescribed or Continued at Discharge Meds if any: NOT Prescribed or Continued at Discharge Venous thromboembolism Inclusion Criteria VTE Diagnosis No VTE Type NONE VTE Confirmed by (Test) NONE Discharge Core Measures - Per Current guidelines, there needs to be overlap - treatment for the first 5 days of Warfarin therapy. - If discharged on Warfarin prior to 5 days of - overlap therapy, the patient will need to be - assessed for post discharge needs including - *Post discharge parental anticoagulation - *Warfarin and/or parental anticoagulation education - *Follow up date to check INR post discharge At least 5 days overlap therapy as Inpatient Yes Meds if any: Prescribed or Continued at Discharge Note: Overlap Therapy is Warfarin and Anticoagulant Meds if any: NOT Prescribed or Continued at Discharge
--- NOTE | 2016-08-22 13:42 | PN- Att Addend ---
Attending Addendum Attending Brief Note No major issues over the weekend. Patient's leg is covered. Vital signs are stable she's a febrile no other changes on physical. Will start disposition plans today, finish antibiotics by mouth keep the leg elevated, follow with the wound Center in follow with me at the office. See the [facility] discharge summary. 24 TOTALS 08/22 0000 08/21 0000 Intake Total 985 1080 Output Total Balance 985 1080 Intake, IV 125 100 Intake, Oral 860 980 Number 2 3 Bowel Movements Patient 290 lb Weight Current Medications Sig/Cristine Start time Last Medication Dose Route Stop Time Status Admin Acetaminophen 650 MG Q6PRN PRN 08/19 1330 AC 08/21 PO 0318 Amlodipine Besylate 10 MG DAILY 08/19 1000 AC 08/22 PO 1033 Amoxicillin/ 875 MG Q12 08/21 2200 AC 08/22 Clavulanate Potassium PO 1033 Atorvastatin Calcium 40 MG 1700 08/19 1700 AC 08/21 PO 1729 Carvedilol 6.25 MG BID 08/18 2359 AC 08/22 PO 1033 Clopidogrel Bisulfate 75 MG DAILY 08/19 1000 AC 08/22 PO 1033 Enoxaparin Sodium 40 MG DAILY 08/19 1000 AC 08/22 SC 1034 Fluoxetine HCl 20 MG DAILY 08/19 1000 AC 08/22 PO 1034 Furosemide 40 MG DAILY 08/19 1000 AC 08/22 PO 1033 Insulin Aspart 0 TIDAC 08/19 0800 AC 08/22 SC 1217 Levothyroxine Sodium 0.15 MG DAILY AC 08/19 0700 AC 08/22 PO 0617 Losartan Potassium 50 MG DAILY 08/19 1000 AC 08/22 PO 1033 Patient Medication 1 ED ONE ONE 08/22 1330 DC Teaching ED 08/22 1331 Vital Signs Date Time Temp Pulse Resp B/P Pulse O2 O2 Flow FiO2 Ox Delivery Rate 08/22 1033 60 168/88 08/22 1033 60 168/88 08/22 1033 60 168/88 08/22 0712 97.7 60 20 162/94 96 08/21 2158 98.7 67 20 140/92 92 08/21 2112 64 140/92 08/21 1502 99.2 68 20 150/72 93 Room Air
--- NOTE | 2016-08-25 10:57 | Discharge Summary ---
Visit Information Visit Dates Admission Date: 08/18/16 Discharge Date: 08/22/16 Hospital Course Course Attending Physician: ELDER VU MD Primary Care Physician: ALEKSANDR GARG,ELDER Hospital Course: 75-year-old white female with several comorbidities comes in with swelling redness and some scabbed areas of the left lower extremity found to have a cellulitis not responding to by mouth antibiotics, came in and had IV antibiotics slow improvement of the leg and eventual discharge home to follow with myself vascular and the wound Center patient was afebrile during her hospitalization her white counts were not elevated. Complications: None Allergies: Coded Allergies: latex (Severe, RASH 08/02/15) lactose (Severe, DIARRHEA 08/02/15) Pertinent Lab Results: Laboratory Tests 08/19/16 0144: Lactic Acid 1.5 08/18/16 2216: Anion Gap 11, Estimated GFR > 60, BUN/Creatinine Ratio 23.3, Glucose 139 H, Lactic Acid 1.3, Calcium 9.2, Total Bilirubin 0.7, AST 15, ALT 38, Alkaline Phosphatase 89, Total Protein 7.0, Albumin 3.9, Globulin 3.1, Albumin/Globulin Ratio 1.3 08/18/162044: CBC w Diff NO MAN DIFF REQ, RBC 5.27, MCV 83.5, MCH 28.5, RDW 13.9, MPV 9.5, Gran % 69.0, Lymphocytes % 20.9, Monocytes % 7.1, Eosinophils % 2.2, Basophils % 0.8, Absolute Granulocytes 6.1, Absolute Lymphocytes 1.9, Absolute Monocytes 0.6 , Absolute Eosinophils 0.2, Absolute Basophils 0.1, PUBS MCHC 34.1 Microbiology 08/18 2044 BLOOD: Blood Culture - RECD 08/18 2029 BLOOD: Blood Culture - RECD 08/19/16 0650: Anion Gap 12, Estimated GFR > 60, BUN/Creatinine Ratio 21.4, CBC w Diff NO MAN DIFF REQ, RBC 5.05, MCV 85.1, MCH 28.3, RDW 13.7, MPV 9.3, Gran % 67.3, Lymphocytes % 21.8, Monocytes % 8.5, Eosinophils % 2.2, Basophils % 0.2, Absolute Granulocytes 6.1, Absolute Lymphocytes 2.0, Absolute Monocytes 0.8 H, Absolute Eosinophils 0.2, Absolute Basophils 0, PUBS MCHC 33.2 08/19/16 0144: Lactic Acid 1.5 08/18/16 2216: Anion Gap 11, Estimated GFR > 60, BUN/Creatinine Ratio 23.3, Glucose 139 H, Lactic Acid 1.3, Calcium 9.2, Total Bilirubin 0.7, AST 15, ALT 38, Alkaline Phosphatase 89, Total Protein 7.0, Albumin 3.9, Globulin 3.1, Albumin/Globulin Ratio 1.3 Disposition Summary Disposition Principal Diagnosis: Cellulitis of the left leg Additional Diagnosis: Venous insufficiency of the legs Diabetes mellitus 2 Depression Hypo thyroidism History of CVA Hypertension Discharge Disposition: home health services Discharge Instructions General Discharge Information Code Status: Full Code Patient's Diet: Diabetic health the heart Patient's Activity: As tolerated and elevate the leg when resting Follow-Up Instructions/Appts: Follow-up with Dr. Vu [facility] Medications at Discharge Discharge Medications: Continue taking these medications: Amlodipine Besylate (Amlodipine Besylate) 10 MG TABLET 1 Tablet ORAL DAILY Qty = 30 Comments: Last Taken: 08/22/16 Time: 10 AM Valsartan (Valsartan) 320 MG TABLET 1 Tablet ORAL DAILY Qty = 30 Comments: NOT GIVEN AT HOSPITAL Clopidogrel Bisulfate (Clopidogrel) 75 MG TABLET 1 Tablet ORAL DAILY Qty = 30 Comments: Last Taken: 08/22/16 Time: 10 AM Levothyroxine Sodium (Levothyroxine Sodium) 150 MCG TABLET 1 Tablet ORAL DAILY Qty = 30 Comments: Last Taken: 08/22/16 Time: 6 AM Metformin HCl (Metformin HCl ER) 500 MG [id number] 1 Tablet ORAL TWICE DAILY Qty = 180 Comments: NOT GIVEN AT HOSPITAL Fluoxetine HCl (Fluoxetine HCl) 20 MG CAPSULE 1 Capsule ORAL DAILY Qty = 30 Comments: Last Taken: 08/22/16 Time: 10 AM Furosemide (Furosemide) 40 MG TABLET 1 Tablet ORAL DAILY Qty = 30 Comments: Last Taken: 08/22/16 Time: 10 AM Atorvastatin Calcium (Atorvastatin Calcium) 40 MG TABLET 1 Tablet ORAL DAILY Qty = 30 Comments: Last Taken: 08/21/16 Time: 5 PM Carvedilol Phosphate (Coreg Cr) 10 MG CPMP.24HR 1 Capsule ORAL DAILY Qty = 30 Comments: Last Taken: 08/22/16 Time: 10 AM Ergocalciferol (Vitamin D2) (Vitamin D2) 50,000 UNIT CAPSULE 1 Capsule ORAL As Directed Qty = 6 Comments: NOT GIVEN AT HOSPITAL Liraglutide (Victoza 3-Bang) 0.6 MG/0.1 ML (18 MG/3 ML) PEN.INJCTR 1.2 Milligram Inject into fatty tissue DAILY Qty = 18 Comments: NOT GIVEN AT HOSPITAL Start taking the following new medications: Amoxicillin/Clavulanate Potass (Amox-Clav 875-125 MG Tablet) 875 MG-125 MG TABLET 875 Milligram ORAL EVERY 12 HOURS Qty = 5 No Refills Copies To: ELDER VU MD Attending MD Review Statement Documenting Attending: ELDER VU MD
== END 2016-08-22 14:30 | disposition home health service (06) | DRG 603 ==
LOC: ENRESERVDT → ENRESERVTM → ERH 17:24 → 2NB 19:56 → ERHI 19:56 → ENPENDDIS 19:56 → 2NB 23:53
PROVIDERS: Internal Medicine Hematology & Oncology; Physician Assistant Surgical; ADMIT Internal Medicine
DX: L03.116 Cellulitis of left lower limb (principal); E11.9 Type 2 diabetes mellitus without complications; I48.0 Paroxysmal atrial fibrillation; Z68.42 Body mass index [BMI] 45.0-49.9, adult; I87.2 Venous insufficiency (chronic) (peripheral); E66.01 Morbid (severe) obesity due to excess calories; F32.9 Major depressive disorder, single episode, unspecified; Z86.73 Personal history of transient ischemic attack (TIA), and cerebral infarction without residual deficits; I10 Essential (primary) hypertension; E78.5 Hyperlipidemia, unspecified; E03.9 Hypothyroidism, unspecified; F41.9 Anxiety disorder, unspecified; Z79.84 Long term (current) use of oral hypoglycemic drugs
CPT/HCPCS: 2NBP; 36415; 82436; 87040; 90662; 93005; 93010; 96365; 96375; 97116-GO; 97161-GP; 97530-GO; J0690; J1650; J1940

== ENCOUNTER 2016-09-10 03:28 | Emergency (ER) | payer OTHER, MEDICARE ==
[~2016-09-10 03:28] MED LIST changes: +AMLODIPINE BESY10 M1 PO; +AMOX-CLAV 875-1 EACH PO; +ATORVASTATIN CA40 M1 PO; +CLOPIDOGREL75 M1 PO; +COREG CR10 M1 PO; +FLUOXETINE HCL20 M2 PO; +FUROSEMIDE40 M1 PO; +LEVOTHYROXINE150 MCG PO; +METFORMIN HCL500 M5 PO; +ONETOUCH LANCE1 EACH SC; +VALSARTAN320 M1 PO; +VICTOZA 3-0.6 MG/0.1 SC; +VITAMIN D250000 UNIT PO
--- NOTE | 2016-09-10 04:16 | ED UPPER/LOWER EXTREMITY COMPL ---
History of Present Illness General Chief Complaint: Lower Extremity Problems Stated Complaint: BIBA LEFT J\\KNEE PAIN Source: patient Exam Limitations: no limitations Vital Signs & Intake/Output Vital Signs & Intake/Output . Allergies Coded Allergies: latex (Severe, RASH 08/02/15) lactose (Severe, DIARRHEA 08/02/15) Reconcile Medications Amlodipine Besylate 10 MG TABLET 1 TAB PO DAILY BP (Reported) Amoxicillin/Clavulanate Potass (Amox-Clav 875-125 MG Tablet) 875 MG-125 MG TABLET 875 MG PO Q12 skin infection Atorvastatin Calcium 40 MG TABLET 1 TAB PO DAILY CHOLESTEROL (Reported) Carvedilol Phosphate (Coreg Cr) 10 MG CPMP.24HR 1 CAP PO DAILY HEART/BP ( Reported) Clopidogrel Bisulfate (Clopidogrel) 75 MG TABLET 1 TAB PO DAILY BLOOD THINNER (Reported) Ergocalciferol (Vitamin D2) (Vitamin D2) 50,000 UNIT CAPSULE 1 CAP PO AD SUPPLEMENT (Reported) Fluoxetine HCl 20 MG CAPSULE 1 CAP PO DAILY MENTAL HEALTH (Reported) Furosemide 40 MG TABLET 1 TAB PO DAILY DIURETIC (Reported) Levothyroxine Sodium 150 MCG TABLET 1 TAB PO DAILY THYROID (Reported) Liraglutide (Victoza 3-Bang) 0.6 MG/0.1 ML (18 MG/3 ML) PEN.INJCTR 1.2 MG SC DAILY DM (Reported) Metformin HCl (Metformin HCl ER) 500 MG [id number] 1 TAB PO BID DM (Reported) Valsartan 320 MG TABLET 1 TAB PO DAILY BP (Reported) Triage Note: PER PT L KNEE PAIN INCREASINGLY WORSE X 1 WEEK PT NONAMBULATORY TODAY D/T PAIN PT WAS ADMITTED FOR CELLULITIS OF LLE BUT AT LAST VISIT LLE "LOOKS GOOD" DENIES PAIN TO LLE ONLY KNEE Triage Nurses Notes Reviewed? yes Onset: Gradual Duration: day(s): Timing: recent history Severity: moderate Pain/Injury Location: Left: Knee. Method of Injury: unknown Modifying Factors: Worsens With: movement. Associated Symptoms: pain and stiffness HPI: 76 yo woman, h/o obesity, GE presents with left knee pain for the past several days, but then was worse tonight. She notes no trauma, but no difficulty ambulating. She notes chronic lower extremity swelling which has not changed. She is otherwise well. (IAN GARG,ALEXSANDER Latif) Past History Travel History Traveled to [place] past 21 day No Medical History Any Pertinent Medical History? 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 No (IAN GARG,ALEXSANDER Latif) Review of Systems Review of Systems Constitutional: Reports: no symptoms. EENTM: Reports: no symptoms. Respiratory: Reports: no symptoms. Cardiovascular: Reports: no symptoms. Gastrointestinal/Abdominal: Reports: no symptoms. Genitourinary: Reports: no symptoms. Musculoskeletal: Reports: no symptoms. Skin: Reports: no symptoms. Neurological/Psychological: Reports: no symptoms. Hematologic/Endocrine: Reports: no symptoms. Immunological: Reports: no symptoms. All Other Systems: Reviewed and Negative (IAN GARG,ALEXSANDER Latif) Physical Exam Physical Exam General Appearance: well developed/nourished, mild distress Eyes: Bilateral: normal appearance. Ears, Nose, Throat: normal pharynx, normal ENT inspection, hearing grossly normal Neck: normal inspection, supple Cardiovascular/Respiratory: regular rate/rhythm Back: normal inspection Leg Left: mild crepitus, no effusion, ligaments stable. Skin: intact, normal color, warm/dry Lymphatic: no anterior cervical renetta (IAN GARG,ALEXSANDER Latif) Progress Differential Diagnosis: osteoarthritis vs other. Plan of Care: Orders Procedure Date/time Status Heart Healthy Diet 09/10 B Active CASE MANAGEMENT CONSULT 09/10 1103 Active PT Evaluate & Treat 09/10 05 Active CASE MANAGEMENT CONSULT 09/10 554 Active Theraputic Activities 15 Min 09/10 UNK Complete MOBILITY GOAL STATUS 09/10 UNK Complete MOBILITY CURRENT STATUS 09/10 UNK Complete PT EVAL LOW COMPLEX 20 MIN 09/10 UNK Complete Current Medications Sig/Cristine Start time Last Medication Dose Stop Time Status Admin Acetaminophen 975 MG ONCE ONE 09/10 1444 UNVr (Tylenol) 09/10 1446 09/10/2016 7:18:53 AM Patient signed out to me by Dr. Aleman. Pending physical therapy evaluation and case management. U/S PENDING. 2:46 PM APPROVED TO GO TO [facility]. TRANSFER CALLED. (MELISSA LUNA MD) Diagnostic Imaging: Viewed by Me: Radiology Read. Discussed w/RAD: Radiology Read. Radiology Impression: LEFT KNEE - DJD Hand-Off Endorsed To: MELISSA LUNA MD Endorsed Time: 0700 Pending: consult, ultrasound Comments: PATIENT: NUNU JONES PRESENT AGE: 76 PATIENT ACCOUNT NO: [id number] : 39 LOCATION: [facility] ORDERING PHYSICIAN: ALEXSANDER ALEMAN MD SERVICE DATE: 09/10/16 EXAM TYPE: RAD - XRY-KNEE COMPLETE LEFT EXAMINATION: XR KNEE, LEFT CLINICAL INFORMATION: Patient unable to ambulate. COMPARISON: None TECHNIQUE: Three views of the left knee. FINDINGS: No fracture. No dislocation. Joint narrowing of the medial femoral tibial joint with [id number] contact. There is marginal spurs of femur and tibia at the lateral compartment of the lateral compartment joint however the joint space is relatively preserved. Small spur of the patella the patellofemoral joint. No joint effusion. Embolization coils seen over the popliteal region soft tissues of knee. IMPRESSION: 1. No acute change. 2. 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 DICTATED BY: VONDA SUNSHINE MD DATE/TIME DICTATED:09/10/16423 CLINICAL SPECIALIST:JONNY DATE/TIME TRANSCRIBED:09/10/16423 CONFIDENTIAL, DO NOT COPY WITHOUT APPROPRIATE AUTHORIZATION. <Electronically signed in Other Vendor System> SIGNED BY: VONDA SUNSHINE MD 09/10/16 0430 (IAN GARG,ALEXSANDER Latif) Diagnostic Imaging: Viewed by Me: Ultrasound. Discussed w/RAD: Ultrasound. (MELISSA LUNA MD) Departure Departure Condition: Stable Clinical Impression Primary Impression: Osteoarthritis Referrals: ELDER BRANDON MD (PCP/Family) Departure Forms: Customer Survey General Discharge Information Comments 09/10/16, 6:28am... pt with osteoarthritis of left knee... pt unable to walk. pt to be evaluated by PT and case management. (IAN GARG,ALEXSANDER Latif) Departure Time of Disposition: 1446 Disposition: ACUTE REHAB FACILITY (JEREMY GARG,MELISSA)
--- NOTE | 2016-09-10 04:30 | RADIOLOGY REPORT ---
EXAMINATION: XR KNEE, LEFT CLINICAL INFORMATION: Patient unable to ambulate. COMPARISON: None TECHNIQUE: Three views of the left knee. FINDINGS: No fracture. No dislocation. Joint narrowing of the medial femoral tibial joint with [id number] contact. There is marginal spurs of femur and tibia at the lateral compartment of the lateral compartment joint however the joint space is relatively preserved. Small spur of the patella the patellofemoral joint. No joint effusion. Embolization coils seen over the popliteal region soft tissues of knee. IMPRESSION: 1. No acute change. 2. 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
--- NOTE | 2016-09-10 08:44 | ULTRASOUND REPORT ---
EXAMINATION: US VENOUS ULTRASOUND WITH DOPPLER LOWER EXTREMITY, LEFT CLINICAL INFORMATION: Edema. COMPARISON: Bilateral leg venous ultrasound 04/13/2016. TECHNIQUE: Ultrasound of the deep veins is performed from the hip to the calf with compression sonography and color and pulse Doppler assessment. Spectral analysis with color-flow imaging is performed. FINDINGS: There is normal venous compression and respiratory variation and augmented flow throughout the deep veins. The visualized common femoral vein, superficial femoral vein, profunda femoral vein, popliteal vein, and the trifurcation region shows no evidence of deep venous thrombosis. There is no significant popliteal fossa cyst. Cursory view right common femoral vein shows patency. If the patient's symptoms persist, followup ultrasound in 5 days 7 days might be of value to exclude proximal propagation from a non-visualized calf vein. IMPRESSION: No DVT demonstrated in the left lower extremity.
[2016-09-10 15:16] VITALS: BP 143/74
== END 2016-09-10 16:11 ==
LOC: ERH 03:28
DX: M17.9 Osteoarthritis of knee, unspecified (principal); R60.0 Localized edema
CPT/HCPCS: 73562-LT; 97161-GP; 97530-GP; G8978-GP; G8979-GP

== ENCOUNTER 2017-06-20 16:40 | Inpatient (IN) | payer OTHER ==
[~2017-06-20] VITALS: Ht 162.6 cm; Wt 131.1 kg
--- NOTE | 2017-06-20 16:45 | ED GENERAL ADULT ---
History of Present Illness General Chief Complaint: General Adult Stated Complaint: BIBA UNABLE TO AMBULATE Source: patient, old records, EMS Exam Limitations: no limitations Vital Signs & Intake/Output Vital Signs & Intake/Output Vital Signs Date Time Temp Pulse Resp B/P B/P Pulse O2 O2 Flow FiO2 Mean Ox Delivery Rate 06/21 1008 98.6 77 18 142/88 06/21 1008 98.6 77 18 142/88 06/21 1008 98.6 77 18 142/88 06/21 0844 98.6 77 18 142/88 98 06/21 0307 97.5 69 20 181/81 94 Room Air 06/20 1938 98.5 99 19 162/91 98 Room Air 06/20 1659 96 06/20 1653 98.1 95 16 178/92 95 Room Air ED Intake and Output 06/21 0000 06/20 1200 Intake Total 500 Output Total 251 Balance 249 Intake, IV 500 Output, Stool 1 Output, Urine 250 Patient 289 lb Weight Weight Reported by Patient Measurement Method Allergies Coded Allergies: latex (Severe, RASH 08/02/15) lactose (Severe, DIARRHEA 08/02/15) Reconcile Medications Amlodipine Besylate 10 MG TABLET 1 TAB PO DAILY BP (Reported) Amoxicillin/Clavulanate Potass (Amox-Clav 875-125 MG Tablet) 875 MG-125 MG TABLET 875 MG PO Q12 skin infection Atorvastatin Calcium 40 MG TABLET 1 TAB PO DAILY CHOLESTEROL (Reported) Carvedilol Phosphate (Coreg Cr) 10 MG CPMP.24HR 1 CAP PO DAILY HEART/BP ( Reported) Clopidogrel Bisulfate (Clopidogrel) 75 MG TABLET 1 TAB PO DAILY BLOOD THINNER (Reported) Ergocalciferol (Vitamin D2) (Vitamin D2) 50,000 UNIT CAPSULE 1 CAP PO AD SUPPLEMENT (Reported) Fluoxetine HCl 20 MG CAPSULE 1 CAP PO DAILY MENTAL HEALTH (Reported) Furosemide 40 MG TABLET 1 TAB PO DAILY DIURETIC (Reported) Levothyroxine Sodium 150 MCG TABLET 1 TAB PO DAILY THYROID (Reported) Liraglutide (Victoza 3-Bang) 0.6 MG/0.1 ML (18 MG/3 ML) PEN.INJCTR 1.2 MG SC DAILY DM (Reported) Metformin HCl (Metformin HCl ER) 500 MG [id number] 1 TAB PO BID DM (Reported) Valsartan 320 MG TABLET 1 TAB PO DAILY BP (Reported) Triage Nurses Notes Reviewed? yes Onset: Gradual Duration: day(s): (FEW) Timing: recent history Injury Environment: home Severity: mild, moderate Modifying Factors: Worsens With: movement. Associated Symptoms: LEG STEVE, WEAKNESS IN KNEES/LEGS HPI: 76 year old female with history of Afib, HTN, CHF, DM who presents to the ER from home for chief complaint of weakness, decreased ability to walk and generally feeling lousy. She reports some increased left leg pain and swelling although it is always swollen. She denies chest pain or shortness of breath. She denies abdominal pain. She is generally incontinent of urine. She also reports left leg swelling which has gotten worse in the last several days. Today her visiting nurse who comes every 2 weeks called EMS because she felt she needed to be evaluated. She has no daily aid. She states that she warms up her own food in the right grapeseed. She states that she is able to wash herself and wash off. She has had a hard time last several days because she feels like her knees are going to give way although she has not fallen down and hurt herself. Past History Travel History Traveled to [place] past 21 day No Medical History Any Pertinent Medical History? 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 No Review of Systems Review of Systems Constitutional: Reports: malaise, weakness. Denies: chills, fever. EENTM: Reports: no symptoms. Respiratory: Denies: cough. Cardiovascular: Denies: chest pain, palpitations, peripheral edema. GI: Denies: abdominal pain. Genitourinary: Reports: see HPI (INCONTINENCE). Musculoskeletal: Reports: no symptoms. Skin: Reports: no symptoms. Neurological/Psychological: Reports: no symptoms. Hematologic/Endocrine: Denies: bruising, bleeding, polyuria, polydipsia. Immunologic/Allergic: Denies: splenectomy. All Other Systems: Reviewed and Negative Physical Exam Physical Exam General Appearance: well developed/nourished, alert, awake, mild distress, obese Head: atraumatic, normal appearance Eyes: Bilateral: normal appearance, PERRL, EOMI. Ears, Nose, Throat: normal pharynx, normal ENT inspection Neck: normal inspection, supple, full range of motion Respiratory: normal breath sounds, chest non-tender, no respiratory distress Cardiovascular: regular rate/rhythm Peripheral Pulses: 2+ radial (R), 2+ radial (L) Gastrointestinal: normal bowel sounds, soft, non-tender, OBESE Extremities: LEFT LEG EDEMA, CHRONIC , POSTERIOR ASPECT OF CALF WARM, ERYTHEMATOUS, CONSISTENT WITH CELLULITIS Neurologic/Psych: no motor/sensory deficits, awake, alert, oriented x 3 Skin: intact, normal color, warm/dry Core Measures ACS in differential dx? No CVA/TIA Diagnosis: No Sepsis Present: No Sepsis Focused Exam Completed? No Progress Differential Diagnoses I considered the following diagnoses in my evaluation of the patient: [DVT, CELLULITIS, ERYSIPELAS, CHRONIC VENOUS STASIS CHANGES, FAILURE TO THRIVE] Plan of Care: Orders Procedure Date/time Status CBC WITHOUT DIFFERENTIAL 06/22 0600 Active BASIC ELECTROLYTES PLUS BUN&CR 06/22 0600 Active Consistent Carbohydrate 1 06/21 B Active FingerStick- Glucose 06/21 0624 Active CBC WITHOUT DIFFERENTIAL 06/21 0600 Complete BASIC ELECTROLYTES PLUS BUN&CR 06/21 0600 Complete Turn and Reposition 06/21 0439 Active Skin Integrity Protocol 06/21 0439 Active Vital Signs 06/21 043 Active Teach/Educate 06/21 043 Active Pain Treatment and Response 06/21 0430 Active Nutritional Intake, Monitor 06/21 0430 Active Isolation 06/21 0430 Active Intake & Output 06/21 043 Active Patient Care Conference 06/21 0430 Active Activity/Ambulation 06/21 043 Active CULTURE,URINE 06/21 0307 Active RAPID VIRAL INFLUENZA A 06/21 0301 Active House Staff 06/21 UNK Active Wound Care/Dressing 06/21 UNK Active PT Evaluate & Treat 06/20 2233 Active Occupational Tx Eval & Treat 06/20 2233 Active Pathway - chart 06/20 2218 Active House Staff 06/20 2218 Active Patient Data 06/20 2218 Active Patient Data 06/20 2042 Active ED Holding Orders 06/20 2028 Active Admit to inpatient 06/20 2028 Active Vital Signs 06/20 2028 Active Code Status 06/20 2028 Active BLOOD CULTURE 06/20 2022 Active Straight Cath 06/20 1655 Active URINALYSIS 06/20 1655 Complete TROPONIN LEVEL 06/20 1655 Complete PARTIAL THROMBOPLASTIN TIME 06/20 1655 Complete PROTHROMBIN TIME 06/20 1655 Complete COMPREHENSIVE METABOLIC PANEL 06/20 1655 Complete CBC WITHOUT DIFFERENTIAL 06/20 1655 Complete EKG 06/20 1655 Active Intake & Output 06/20 1653 Active VTE Mechanical Prophylaxis 06/20 UNK Active Current Medications Sig/Cristine Start time Last Medication Dose Stop Time Status Admin Amlodipine Besylate 10 MG DAILY 06/21 1000 AC 06/21 (Norvasc) 1008 Carvedilol 6.25 MG BID 06/21 1000 AC 06/21 (Coreg) 1008 Clopidogrel Bisulfate 75 MG DAILY 06/21 1000 AC 06/21 (Plavix) 1008 Enoxaparin Sodium 40 MG DAILY 06/21 1000 AC 06/21 (Lovenox) 1008 Fluoxetine HCl 20 MG DAILY 06/21 1000 AC 06/21 (Prozac) 1008 Furosemide 40 MG DAILY 06/21 1000 AC 06/21 (Lasix) 1008 Losartan Potassium 50 MG DAILY 06/21 1000 AC 06/21 (Cozaar) 1008 Insulin Aspart 0 TIDAC 06/21 0800 AC (NovoLOG) Levothyroxine Sodium 0.15 MG DAILY AC 06/21 0700 AC 06/21 (Synthroid) 0746 Ampicillin Sodium/ 1,500 MG Q6 06/20 2359 AC 06/21 Sulbactam Sodium 1213 (Unasyn) Sodium Chloride 100 ML (Normal Saline 0.9%) Acetaminophen 650 MG Q6P PRN 06/20 2230 AC (Tylenol) Acetaminophen 1,000 MG Q6P PRN 06/20 2230 AC (Ofirmev) Sodium Chloride 1,000 ML Q13H 06/20 2215 AC 06/21 (Normal Saline 0.9%) 1213 Laboratory Tests 06/21/17 0559: Anion Gap 14, Estimated GFR > 60, BUN/Creatinine Ratio 26.7 H, CBC w Diff NO MAN DIFF REQ, RBC 4.75, MCV 85.4, MCH 28.6, RDW 14.3, MPV 8.4, Gran % 71.2, Lymphocytes % 18.4 L, Monocytes % 6.7, Eosinophils % 3.3, Basophils % 0.4, Absolute Granulocytes 6.0, Absolute Lymphocytes 1.5, Absolute Monocytes 0.6, Absolute Eosinophils 0.3, Absolute Basophils 0, PUBS MCHC 33.4 06/20/17 1817: Anion Gap 17 H, Estimated GFR > 60, BUN/Creatinine Ratio 32.9 H, Glucose 222 H, Calcium 9.5, Total Bilirubin 0.5, AST 21, ALT 44, Alkaline Phosphatase 117, Troponin I < 0.01, Total Protein 7.8, Albumin 4.6, Globulin 3.2, Albumin/ Globulin Ratio 1.4, PT 10.6, INR 1.01, APTT 27, CBC w Diff NO MAN DIFF REQ, RBC 5.26, MCV 86.5, MCH 27.8, RDW 14.8 H, MPV 9.5, Gran % 70.9, Lymphocytes % 19.1 L, Monocytes % 6.6, Eosinophils % 3.1, Basophils % 0.3, Absolute Granulocytes 6.9 H, Absolute Lymphocytes 1.9, Absolute Monocytes 0.6, Absolute Eosinophils 0.3, Absolute Basophils 0, PUBS MCHC 32.2 L 06/20/17 1659: Urine Color YEL, Urine Clarity CLEAR, Urine pH 6.0, Ur Specific [place] 1.020, Urine Protein NEG, Urine Ketones NEG, Urine Nitrite NEG, Urine Bilirubin NEG, Urine Urobilinogen 0.2, Ur Leukocyte Esterase SMALL H, Ur Microscopic SEDIMENT EXAMINED, Urine RBC RARE, Urine WBC 5-10 H, Ur Epithelial Cells FEW, Urine Bacteria RARE H, Urine Hemoglobin NEG, Urine Glucose NEG Microbiology 06/21 306 URINE ROUT: Urine Culture - COLB 06/21 300 NASOPHARYN: Influenza Virus A & B Rapid Smear - COLB 06/20 2307 BLOOD: Blood Culture - RES 06/20 2307 BLOOD: Blood Culture - RES Diagnostic Imaging: Viewed by Me: Radiology Read, Ultrasound. Discussed w/RAD: Radiology Read, Ultrasound. CXR Impression: no acute abnormality, no infiltrates Initial ED EKG: NSR Comments: PATIENT: NUNU JONES PRESENT AGE: 76 PATIENT ACCOUNT NO: [id number] : 39 LOCATION: [facility] ORDERING PHYSICIAN: Zayra Kohli MD SERVICE DATE: 06/20/17 EXAM TYPE: US - US-UNILATERAL VENOUS DOPPLER EXAMINATION: US TRIPLEX LOWER EXTREMITY, LEFT CLINICAL INFORMATION: Left lower extremity edema. COMPARISON: September 10, 2016. TECHNIQUE: Color-flow triplex imaging with spectral analysis and compression Doppler were performed on the lower extremity. FINDINGS: Respiratory variation, normal compression and augmented flow are noted throughout the lower extremity. The visualized common femoral vein, superficial femoral vein, profunda femoral vein, popliteal vein and midcalf peroneal and posterior tibial venous segments show no evidence of deep venous thrombosis. There is no Ballard's cyst. IMPRESSION: Normal triplex scan without evidence of deep venous thrombosis involving the lower extremity. DICTATED BY: Akira Marquez MD DATE/TIME DICTATED:06/20/171844 CASH POSTING SPECIALIST:JONNY DATE/TIME TRANSCRIBED:06/20/171844 CONFIDENTIAL, DO NOT COPY WITHOUT APPROPRIATE AUTHORIZATION. <Electronically signed in Other Vendor System> SIGNED BY: Akira Marquez MD 06/20/171848 Departure Departure Time of Disposition: 2027 Disposition: STILL A PATIENT Condition: Stable Clinical Impression Primary Impression: Left leg cellulitis Secondary Impressions: Dyspnea on exertion Referrals: Rangel Vu MD (PCP/Family) Departure Forms: Customer Survey General Discharge Information Admission Note Spoke With: Rangel Vu MD Documentation of Exam: Documentation of any treatments & extenuating circumstances including Concerns Regarding Discharge (functional status, medication knowledge or non-compliance, living conditions, etc.) that warrant an admission rather than observation: [IV ABX, LEG ELEVATION, MONITOR I/O, F/U CULTURES, PT EVALUATION] Critical Care Note Critical Care Note Critical Care Time: non-applicable
[2017-06-20 18:33] LABS: ABSOLUTE BASOPHIL COUNT 0 /CUMM (0.0-0.2); ABSOLUTE EOSINOPHIL COUNT 0.3 /CUMM (0.0-0.7); ABSOLUTE GRANULOCYTE CT 6.9 /CUMM (1.4-6.5); ABSOLUTE LYMPH COUNT 1.9 /CUMM (1.2-3.4); ABSOLUTE MONOCYTE COUNT 0.6 /CUMM (0.10-0.60); BASOPHIL % 0.3 % (0.0-2.0); EOSINOPHIL % 3.1 % (0-5); GRANULOCYTE % 70.9 % (42.2-75.2); HEMATOCRIT 45.5 % (37-47); MEAN CORPUSCULAR HGB 27.8 PG (27.0-31.0); MEAN CORPUSCULAR HGB CONC 32.2 G/DL (33.0-37.0); MEAN CORPUSCULAR VOLUME 86.5 FL (81.0-99.0); MEAN PLATELET VOLUME 9.5 FL (7.4-10.4); PLATELET COUNT 196 /CUMM (130-400); RBC DISTRIBUTION WIDTH 14.8 % (11.5-14.5); RED BLOOD CELL CT 5.26 /CUMM (4.20-5.40); WHITE BLOOD CELL COUNT 9.8 /CUMM (4.8-10.8)
[2017-06-20 18:43] LABS: PT 10.6 SEC (9.4-12.5); PTT 27 SEC (25-37)
--- NOTE | 2017-06-20 18:49 | ULTRASOUND REPORT ---
EXAMINATION: US TRIPLEX LOWER EXTREMITY, LEFT CLINICAL INFORMATION: Left lower extremity edema. COMPARISON: September 10, 2016. TECHNIQUE: Color-flow triplex imaging with spectral analysis and compression Doppler were performed on the lower extremity. FINDINGS: Respiratory variation, normal compression and augmented flow are noted throughout the lower extremity. The visualized common femoral vein, superficial femoral vein, profunda femoral vein, popliteal vein and midcalf peroneal and posterior tibial venous segments show no evidence of deep venous thrombosis. There is no Ballard's cyst. IMPRESSION: Normal triplex scan without evidence of deep venous thrombosis involving the lower extremity.
--- NOTE | 2017-06-20 18:53 | RADIOLOGY REPORT ---
EXAMINATION: XR PORTABLE CHEST CLINICAL INFORMATION: Left-sided chest pain COMPARISON: Chest x-ray 08/04/2015 TECHNIQUE: Portable frontal view of the chest was obtained. 6:32 PM FINDINGS: Heart size enlarged. Cardiomediastinal contours are normal. There are calcifications of aortic arch. There is no acute abnormality of the chest. No pulmonary vascular congestion. No infiltrate or pleural effusion. IMPRESSION: No acute abnormality of the chest.
--- NOTE | 2017-06-20 22:36 | History & Physical ---
See Addendum General Information and HPI MD Statement: I have seen and personally examined NUNU JONES and documented this H&P. The patient is a 76 year old F who presented with a patient stated chief complaints of lower extremity weakness with increased left leg swelling. Source of Information: patient Exam Limitations: no limitations History of Present Illness: Patient is a obese 76-year-old woman with past medical history significant for atrial fibrillation(not on anticoagulation) history of stroke on Plavix, , history of hypertension and hyperlipidemia, CHF, diabetes mellitus, remote history of MRSA infection presented to the ED for the evaluation of generalized weakness and malaise. Patient mentioned that for the last couple of weeks she has been feeling more tired and fatigued, and inability to ambulate by herself. Also she has noticed worsening left lower extremity swelling with redness for the last couple of days. Denies any history of trauma /insect bites. Denies any fever or chills. Patient also mentioned that she has been having postnasal drip without any other upper respiratory symptoms. Has some trouble breathing at baseline not getting any worse denies any chest discomfort palpitations.Received flu shot this season. She has bowel and urinary incontinence and uses diapers, denies any recent nausea vomiting diarrhea denies any urinary symptoms. She is forgetful sometimes miss her medications .She usually uses a walker at home, has a visiting nurse that comes every 2 weeks, quit smoking a while ago does not drink alcohol. Allergies/Medications Allergies: Coded Allergies: latex (Severe, RASH 08/02/15) lactose (Severe, DIARRHEA 08/02/15) Home Med list Amlodipine Besylate 10 MG TABLET 1 TAB PO DAILY BP (Reported) Amoxicillin/Clavulanate Potass (Amox-Clav 875-125 MG Tablet) 875 MG-125 MG TABLET 875 MG PO Q12 skin infection Atorvastatin Calcium 40 MG TABLET 1 TAB PO DAILY CHOLESTEROL (Reported) Carvedilol Phosphate (Coreg Cr) 10 MG CPMP.24HR 1 CAP PO DAILY HEART/BP ( Reported) Clopidogrel Bisulfate (Clopidogrel) 75 MG TABLET 1 TAB PO DAILY BLOOD THINNER (Reported) Ergocalciferol (Vitamin D2) (Vitamin D2) 50,000 UNIT CAPSULE 1 CAP PO AD SUPPLEMENT (Reported) Fluoxetine HCl 20 MG CAPSULE 1 CAP PO DAILY MENTAL HEALTH (Reported) Furosemide 40 MG TABLET 1 TAB PO DAILY DIURETIC (Reported) Levothyroxine Sodium 150 MCG TABLET 1 TAB PO DAILY THYROID (Reported) Liraglutide (Victoza 3-Bang) 0.6 MG/0.1 ML (18 MG/3 ML) PEN.INJCTR 1.2 MG SC DAILY DM (Reported) Metformin HCl (Metformin HCl ER) 500 MG [id number] 1 TAB PO BID DM (Reported) Valsartan 320 MG TABLET 1 TAB PO DAILY BP (Reported) Past History Travel History Traveled to [place] past 21 day No Medical History Neurological: CVA EENT: NONE Cardiovascular: AFIB, hypertension, hyperlipidemia Respiratory: NONE Gastrointestinal: alcoholic hepatitis Hepatic: NONE Renal: NONE Musculoskeletal: CELLULITIS Psychiatric: depression Endocrine: diabetes, hypothyroidism Blood Disorders: NONE Cancer(s): NONE 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 self Services at Home: None Primary Language: Ukrainian ETOH Use: DENIES Illicit Drug Use: denies illicit drug use Functional Ability ADLs Independent: dressing, eating, toileting, bathing. Ambulation: walker IADLs Independent: shopping, housework, finances, food prep, telephone, transportation , medication admin. Review of Systems Review of Systems Constitutional: Denies: diaphoresis, fever, malaise. EENTM: Denies: blurred vision, visual changes, eye pain. Cardiovascular: Reports: edema. Denies: orthopena, palpitations. Respiratory: Denies: hemoptysis, orthopnea. GI: Denies: bloating, diarrhea, distention. Genitourinary: Denies: discharge. Musculoskeletal: Denies: back pain, gout, joint pain. Skin: Reports: change in skin color. Exam & Diagnostic Data Last 24 Hrs of Vital Signs/I&O Vital Signs Date Time Temp Pulse Resp B/P B/P Pulse O2 O2 Flow FiO2 Mean Ox Delivery Rate 06/20 1937 98.5 99 19 162/91 98 Room Air 06/20 1659 96 06/20 1653 98.1 95 16 178/92 95 Room Air Intake & Output 06/21 0800 06/21 0000 01/16 1600 Intake Total 500 Output Total 251 Balance 249 Intake, IV 500 Output, Stool 1 Output, Urine 250 Patient 289 lb Weight Weight Reported by Patient Measurement Method Physical Exam General Appearance Alert, Oriented X3 Skin BILATERAL LOW EXT SKIN CHANGES Skin Temp/Moisture Exam: Warm/Dry HEENT Atraumatic, PERRLA Neck Supple, No JVD Cardiovascular Regular Rate, Normal S1, Normal S2 Lungs Clear to Auscultation Abdomen Normal Bowel Sounds, Soft Extremities LEFT LOWER EXTREMITY REDNESS WITH INCREASED SWELLING WITH YELLOW DISCHARGE( PUS) Assessment/Plan Assessment: Patient is a obese 76-year-old woman with past medical history significant for atrial fibrillation(not on anticoagulation) history of stroke on Plavix, history of hypertension and hyperlipidemia, CHF, diabetes mellitus, history of anxiety depression, remote history of MRSA infection presented to the ED for the evaluation of generalized weakness and malaise. Vitals on admission 98.1, pulse 95, respiratory rate 16, blood pressure 178/90 on room air Pertinent labs on admission, WBC count H&H stable elevated anion gap and elevated BUN 23 Doppler venous ultrasound to rule out any underlying DVT chest x-ray normal Problem list Increased left lower extremity redness and swelling possible underlying cellulitis /status dermatitis Postnasal drip with worsening weakness and lethargy rule out influenza History of atrial fibrillation History of stroke History of hypertension hyperlipidemia History of diabetes History of anxiety depression PLAN: Increased left lower extremity redness and swelling possible underlying cellulitis /status dermatitis Admit the patient [facility] floor * Continue with IV Unasyn for possible encephalitis * Continue with IV fluids * Obtain pancultures * Monitor vitals every 4 hours * Obtain wound consult in the morning * Keep the legs elevated * Consider ID consult. Postnasal drip with worsening weakness and lethargy rule out influenza * Obtain flu swab. History of atrial fibrillation and systolic heart failure * Continue carvedilol * Lasix History of stroke * Continue Plavix. History of hypertension and hyperlipidemia * Continue medications. History of diabetes * Hold hypoglycemics * Start the patient on sliding scale with Accu-Cheks History of anxiety depression * Continue fluoxetine DVT prophylaxis: Subcutaneous Lovenox Multivitamin with IV Tylenol Patient is full code As Ranked By This Provider Problem List: 1. Left leg cellulitis Core Measures/Misc (02/19) Acute Coronary Syndrome ACS Diagnosis: No Congestive Heart Failure Congestive Heart Failure Diagnosis No Cerebrovascular Accident CVA/TIA Diagnosis: No VTE (View Protocol) VTE Risk Factors Acute Medical Illness No Mechanical VTE Prophylaxis d/t LowRisk-No Interven Req'd No VTE Pharm Prophylaxis d/t LowRisk-No Interven Req'd Sepsis (View protocol) Sepsis Present: No Resident Review Statement Resident Statement: examined this patient, discussed with software developer intern Attending MD Review Statement Attending Statement Attending MD Statement: examined this patient, discuss w/resident/PA/PHARMACIST [facility]OSPITAL
[2017-06-21 06:11] LABS: ABSOLUTE BASOPHIL COUNT 0 /CUMM (0.0-0.2); ABSOLUTE EOSINOPHIL COUNT 0.3 /CUMM (0.0-0.7); ABSOLUTE LYMPH COUNT 1.5 /CUMM (1.2-3.4); ABSOLUTE MONOCYTE COUNT 0.6 /CUMM (0.10-0.60); BASOPHIL % 0.4 % (0.0-2.0); EOSINOPHIL % 3.3 % (0-5); GRANULOCYTE % 71.2 % (42.2-75.2); HEMATOCRIT 40.6 % (37-47); MEAN CORPUSCULAR HGB 28.6 PG (27.0-31.0); MEAN CORPUSCULAR HGB CONC 33.4 G/DL (33.0-37.0); MEAN CORPUSCULAR VOLUME 85.4 FL (81.0-99.0); MEAN PLATELET VOLUME 8.4 FL (7.4-10.4); PLATELET COUNT 170 /CUMM (130-400); RBC DISTRIBUTION WIDTH 14.3 % (11.5-14.5); RED BLOOD CELL CT 4.75 /CUMM (4.20-5.40); WHITE BLOOD CELL COUNT 8.4 /CUMM (4.8-10.8)
--- NOTE | 2017-06-21 07:30 | PN- Housestaff ---
Subjective Follow-up For: Left lower extremity cellulitis and worsening lower extremity edema Complaints: no complaints Subjective: Patient was seen and examined this morning. She was lying comfortably in bed without any significant complaint except weakness and pathology which she is experiencing for last few days. She remained afebrile and hemodynamically stable. Review of Systems Constitutional: Reports: malaise, weakness. Denies: chills, diaphoresis. Cardiovascular: Reports: edema. Denies: chest pain, orthopena, palpitations. Respiratory: Denies: hemoptysis, orthopnea, short of breath. Gastrointestinal: Denies: constipation, diarrhea. Genitourinary: Denies: frequency, hematuria. Musculoskeletal: Denies: gout, joint swelling. Skin: Reports: see HPI. Objective Last 24 Hrs of Vital Signs/I&O Vital Signs Date Time Temp Pulse Resp B/P B/P Pulse O2 O2 Flow FiO2 Mean Ox Delivery Rate 06/21 1008 98.6 77 18 142/88 06/21 1008 98.6 77 18 142/88 06/21 1008 98.6 77 18 142/88 06/21 0844 98.6 77 18 142/88 98 06/21 0307 97.5 69 20 181/81 94 Room Air 06/20 1938 98.5 99 19 162/91 98 Room Air 06/20 1659 96 06/20 1653 98.1 95 16 178/92 95 Room Air Intake & Output 06/21 1600 06/21 0800 06/21 0000 Intake Total 340 500 Output Total 251 Balance 340 249 Intake, IV 100 500 Intake, Oral 240 Output, Stool 1 Output, Urine 250 Patient 289 lb Weight Weight Reported by Patient Measurement Method Physical Exam General Appearance: Alert, Oriented X3, Cooperative, No Acute Distress Skin: bilateral lower extremity edema and left lower extremity erythema Cardiovascular: Regular Rate, Normal S1, Normal S2 Lungs: Normal Air Movement Abdomen: Soft, No Tenderness Extremities: No Clubbing, No Cyanosis Current Medications: Current Medications Sig/Cristine Start time Last Medication Dose Route Stop Time Status Admin Acetaminophen 650 MG Q6P PRN 06/20 2230 AC PO Acetaminophen 1,000 MG Q6P PRN 06/20 223 AC IV Amlodipine Besylate 10 MG DAILY 06/21 1000 AC 06/21 PO 1008 Ampicillin Sodium/ 0 .STK-MED ONE 06/21 0618 DC Sulbactam Sodium .ROUTE Ampicillin Sodium/ 1,500 MG Q6 06/20 2359 AC 06/21 Sulbactam Sodium IV 1213 Sodium Chloride 100 ML Ampicillin Sodium/ 0 .STK-MED ONE 06/20 2308 DC Sulbactam Sodium .ROUTE Ampicillin Sodium/ 3,000 MG ONCE ONE 06/20 2030 DC 06/20 Sulbactam Sodium IV 06/20 2059 2316 Sodium Chloride 100 ML Carvedilol 6.25 MG BID 06/21 1000 AC 06/21 PO 1008 Clopidogrel Bisulfate 75 MG DAILY 06/21 1000 AC 06/21 PO 1008 Enoxaparin Sodium 40 MG DAILY 06/21 1000 AC 06/21 SC 1008 Fluoxetine HCl 20 MG DAILY 06/21 1000 AC 06/21 PO 1008 Furosemide 40 MG DAILY 06/21 1000 AC 06/21 PO 1008 Insulin Aspart 0 TIDAC 06/21 0800 AC SC Levothyroxine Sodium 0.15 MG DAILY AC 06/21 0700 AC 06/21 PO 0746 Losartan Potassium 50 MG DAILY 06/21 1000 AC 06/21 PO 1008 Sodium Chloride 1,000 ML Q13H 06/20 2215 AC 06/21 IV 1213 Sodium Chloride 500 ML BOLUS ONE 06/20 1915 DC 06/20 IV 06/20 2013 193 Last 24 Hrs of Lab/Codey Results Last 24 Hrs of Labs/Mics: Laboratory Tests 06/21/17 0559: Anion Gap 14, Estimated GFR > 60, BUN/Creatinine Ratio 26.7 H, CBC w Diff NO MAN DIFF REQ, RBC 4.75, MCV 85.4, MCH 28.6, RDW 14.3, MPV 8.4, Gran % 71.2, Lymphocytes % 18.4 L, Monocytes % 6.7, Eosinophils % 3.3, Basophils % 0.4, Absolute Granulocytes 6.0, Absolute Lymphocytes 1.5, Absolute Monocytes 0.6, Absolute Eosinophils 0.3, Absolute Basophils 0, PUBS MCHC 33.4 06/20/17 1817: Anion Gap 17 H, Estimated GFR > 60, BUN/Creatinine Ratio 32.9 H, Glucose 222 H, Calcium 9.5, Total Bilirubin 0.5, AST 21, ALT 44, Alkaline Phosphatase 117, Troponin I < 0.01, Total Protein 7.8, Albumin 4.6, Globulin 3.2, Albumin/ Globulin Ratio 1.4, PT 10.6, INR 1.01, APTT 27, CBC w Diff NO MAN DIFF REQ, RBC 5.26, MCV 86.5, MCH 27.8, RDW 14.8 H, MPV 9.5, Gran % 70.9, Lymphocytes % 19.1 L, Monocytes % 6.6, Eosinophils % 3.1, Basophils % 0.3, Absolute Granulocytes 6.9 H, Absolute Lymphocytes 1.9, Absolute Monocytes 0.6, Absolute Eosinophils 0.3, Absolute Basophils 0, PUBS MCHC 32.2 L 06/20/17 1659: Urine Color YEL, Urine Clarity CLEAR, Urine pH 6.0, Ur Specific [place] 1.020, Urine Protein NEG, Urine Ketones NEG, Urine Nitrite NEG, Urine Bilirubin NEG, Urine Urobilinogen 0.2, Ur Leukocyte Esterase SMALL H, Ur Microscopic SEDIMENT EXAMINED, Urine RBC RARE, Urine WBC 5-10 H, Ur Epithelial Cells FEW, Urine Bacteria RARE H, Urine Hemoglobin NEG, Urine Glucose NEG Microbiology 06/21 0301 NASOPHARYN: Influenza Virus A & B Rapid Smear - COLB 06/20 2307 BLOOD: Blood Culture - RES 06/20 2307 BLOOD: Blood Culture - RES 06/20 1658 URINE ROUT: Urine Culture - RECD Assessment/Plan Assessment: Patient is a obese 76-year-old woman with past medical history significant for atrial fibrillation(not on anticoagulation) history of stroke on Plavix, history of hypertension and hyperlipidemia, CHF, diabetes mellitus, history of anxiety depression, remote history of MRSA infection presented to the ED for the evaluation of generalized weakness and malaise. Vitals on admission 98.1, pulse 95, respiratory rate 16, blood pressure 178/90 on room air Pertinent labs on admission, WBC count H&H stable elevated anion gap and elevated BUN 23 Doppler venous ultrasound to rule out any underlying DVT chest x-ray normal Problem list Increased left lower extremity redness and swelling possible underlying cellulitis /status dermatitis Postnasal drip with worsening weakness and lethargy rule out influenza History of atrial fibrillation History of stroke History of hypertension hyperlipidemia History of diabetes History of anxiety depression PLAN: Increased left lower extremity redness and swelling possible underlying cellulitis /status dermatitis Admit the patient [facility] floor * Continue with IV Unasyn for possible cellulitis * Wound consultation was placed and appreciated. We will keep lower extremity elevated with cony wrap awaiting cultures results to come back Postnasal drip with worsening weakness and lethargy rule out influenza * Pending rapid flu History of atrial fibrillation and systolic heart failure * Continue carvedilol * Lasix History of stroke * Continue Plavix. History of hypertension and hyperlipidemia * Continue medications. History of diabetes * Hold hypoglycemics * Start the patient on sliding scale with Accu-Cheks History of anxiety depression * Continue fluoxetine * DVT prophylaxis: Subcutaneous Lovenox Multivitamin with IV Tylenol Patient is full code Problem List: 1. Leg erythema Pain Ratin Pain Location: Not applicable Pain Goal: Remain pain free Pain Plan: Tylenol Tomorrow's Labs & Rationales: CVC and basic electrolyte panel
[2017-06-21 08:44] VITALS: BP 142/88
--- NOTE | 2017-06-21 10:42 | Cons- Wound Care ---
General Information and HPI Consulting Request Date of Consult: 06/21/17 Requested By: Rangel Vu MD Reason for Consult: Left lower extremity erythema History of Present Illness: Patient is 76-year-old obese woman with history of diabetes chronic venous insufficiency and recurrent lower extremity venous stasis ulcers atrial fibrillation congestive heart failure presented with weakness and found to have swollen erythematous left lower extremity with chronic changes of lymphedema. Eyes fevers chills or claudication. She was last seen March 2017 for lower extremity venous stasis ulcer which was healed with compression therapy Allergies/Medications Allergies: Coded Allergies: latex (Severe, RASH 08/02/15) lactose (Severe, DIARRHEA 08/02/15) Home Med List: Amlodipine Besylate 10 MG TABLET 1 TAB PO DAILY BP (Reported) Amoxicillin/Clavulanate Potass (Amox-Clav 875-125 MG Tablet) 875 MG-125 MG TABLET 875 MG PO Q12 skin infection Atorvastatin Calcium 40 MG TABLET 1 TAB PO DAILY CHOLESTEROL (Reported) Carvedilol Phosphate (Coreg Cr) 10 MG CPMP.24HR 1 CAP PO DAILY HEART/BP ( Reported) Clopidogrel Bisulfate (Clopidogrel) 75 MG TABLET 1 TAB PO DAILY BLOOD THINNER (Reported) Ergocalciferol (Vitamin D2) (Vitamin D2) 50,000 UNIT CAPSULE 1 CAP PO AD SUPPLEMENT (Reported) Fluoxetine HCl 20 MG CAPSULE 1 CAP PO DAILY MENTAL HEALTH (Reported) Furosemide 40 MG TABLET 1 TAB PO DAILY DIURETIC (Reported) Levothyroxine Sodium 150 MCG TABLET 1 TAB PO DAILY THYROID (Reported) Liraglutide (Victoza 3-Bang) 0.6 MG/0.1 ML (18 MG/3 ML) PEN.INJCTR 1.2 MG SC DAILY DM (Reported) Metformin HCl (Metformin HCl ER) 500 MG [id number] 1 TAB PO BID DM (Reported) Valsartan 320 MG TABLET 1 TAB PO DAILY BP (Reported) Past History Travel History Traveled to [place] past 21 day No (patient denies claudication) Medical History Neurological: CVA EENT: NONE Cardiovascular: AFIB, hypertension, hyperlipidemia Respiratory: NONE Gastrointestinal: alcoholic hepatitis Hepatic: NONE Renal: NONE Musculoskeletal: CELLULITIS Psychiatric: depression Endocrine: diabetes, hypothyroidism Blood Disorders: NONE Cancer(s): NONE 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 self Services at Home: None Primary Language: Serbian Smoking Status: Former Smoker ETOH Use: DENIES Illicit Drug Use: denies illicit drug use Functional Ability ADLs Independent: dressing, eating, toileting, bathing. Ambulation: walker IADLs Independent: shopping, housework, finances, food prep, telephone, transportation , medication admin. Exam & Diagnostic Data Vital Signs and I&O Vital Signs Result Date Time B/P 142/88 06/21 1008 Temp 98.6 06/21 1008 Pulse 77 06/21 1008 Resp 18 06/21 1008 Pulse Ox 98 06/21 0844 O2 Delivery Room Air 06/21 0307 Intake & Output 06/21 0000 06/20 1600 06/20 0800 Intake Total 500 Output Total 251 Balance 249 Intake, IV 500 Output, Stool 1 Output, Urine 250 Patient 289 lb Weight Weight Reported by Patient Measurement Method Exam of both lower extremity shows there to be edema present though left lower extremity changes are more pronounced with evidence of stasis dermatitis and probable lymphedema. Over the anterior leg is approximately a 2.5 x 1 cm area of dry scab which was unable to be removed. No open ulcers or evidence of drainage. The pulses are unable to palpated but she has no history of peripheral vascular disease Assessment/Plan Impression/Plan: 76-year-old morbidly obese with atrial fibrillation and congestive heart failure chronic venous disease chronic edema nonadherent with the use of compression stockings presents with weakness and increased lower extremity edema left greater than right with significant erythema. Her white count and temperature are normal suggesting that this may be chronic inflammation rather than cellulitis. Recommend follow-up cultures aggressive leg elevation mild negative fluid balance. The use of Vinny wrap for the left leg from the foot to below the knee can be utilized in conjunction with elevation Consult Acknowledgment - Thank you for your consult request.
--- NOTE | 2017-06-21 12:51 | PN- Att Addend ---
Attending Addendum Attending Brief Note 76-year-old white female with many comorbidities, with chronic leg edema, patient has home care visiting nurses. For the last few days the left lower extremity has been red and a little warm little tender, visiting nurse suggested patient to come to the emergency room. Was evaluated was pancultured, was started on IV antibiotics and had an ultrasound which shows no DVT. Was admitted patient had a wound consultation, will follow the recommendations are which check all the cultures and blood work continue antibiotic treatment. 24 TOTALS 06/21 0000 06/20 0000 Intake Total 500 Output Total 251 Balance 249 Intake, IV 500 Output, Stool 1 Output, Urine 250 Patient 289 lb Weight Weight Reported by Patient Measurement Method Current Medications Sig/Cristine Start time Last Medication Dose Route Stop Time Status Admin Acetaminophen 650 MG Q6P PRN 06/20 2230 AC PO Acetaminophen 1,000 MG Q6P PRN 06/20 2230 AC IV Amlodipine Besylate 10 MG DAILY 06/21 1000 AC 06/21 PO 1008 Ampicillin Sodium/ 0 .STK-MED ONE 06/21 0618 DC Sulbactam Sodium .ROUTE Ampicillin Sodium/ 1,500 MG Q6 06/20 2359 AC 06/21 Sulbactam Sodium IV 1213 Sodium Chloride 100 ML Ampicillin Sodium/ 0 .STK-MED ONE 06/20 2308 DC Sulbactam Sodium .ROUTE Ampicillin Sodium/ 3,000 MG ONCE ONE 06/20 2030 DC 06/20 Sulbactam Sodium IV 06/20 205 2316 Sodium Chloride 100 ML Carvedilol 6.25 MG BID 06/21 1000 AC 06/21 PO 1008 Clopidogrel Bisulfate 75 MG DAILY 06/21 1000 AC 06/21 PO 1008 Enoxaparin Sodium 40 MG DAILY 06/21 1000 AC 06/21 SC 1008 Fluoxetine HCl 20 MG DAILY 06/21 1000 AC 06/21 PO 1008 Furosemide 40 MG DAILY 06/21 1000 AC 06/21 PO 1008 Insulin Aspart 0 TIDAC 06/21 0800 AC SC Levothyroxine Sodium 0.15 MG DAILY AC 06/21 0700 AC 06/21 PO 0746 Losartan Potassium 50 MG DAILY 06/21 1000 AC 06/21 PO 1008 Sodium Chloride 1,000 ML Q13H 06/20 2215 AC 06/21 IV 1213 Sodium Chloride 500 ML BOLUS ONE 06/20 1915 DC 06/20 IV 06/20 2013 193 Laboratory Tests 06/21/17 0559: Anion Gap 14, Estimated GFR > 60, BUN/Creatinine Ratio 26.7 H, CBC w Diff NO MAN DIFF REQ, RBC 4.75, MCV 85.4, MCH 28.6, RDW 14.3, MPV 8.4, Gran % 71.2, Lymphocytes % 18.4 L, Monocytes % 6.7, Eosinophils % 3.3, Basophils % 0.4, Absolute Granulocytes 6.0, Absolute Lymphocytes 1.5, Absolute Monocytes 0.6, Absolute Eosinophils 0.3, Absolute Basophils 0, PUBS MCHC 33.4 06/20/17 1817: Anion Gap 17 H, Estimated GFR > 60, BUN/Creatinine Ratio 32.9 H, Glucose 222 H, Calcium 9.5, Total Bilirubin 0.5, AST 21, ALT 44, Alkaline Phosphatase 117, Troponin I < 0.01, Total Protein 7.8, Albumin 4.6, Globulin 3.2, Albumin/ Globulin Ratio 1.4, PT 10.6, INR 1.01, APTT 27, CBC w Diff NO MAN DIFF REQ, RBC 5.26, MCV 86.5, MCH 27.8, RDW 14.8 H, MPV 9.5, Gran % 70.9, Lymphocytes % 19.1 L, Monocytes % 6.6, Eosinophils % 3.1, Basophils % 0.3, Absolute Granulocytes 6.9 H, Absolute Lymphocytes 1.9, Absolute Monocytes 0.6, Absolute Eosinophils 0.3, Absolute Basophils 0, PUBS MCHC 32.2 L 06/20/17 1659: Urine Color YEL, Urine Clarity CLEAR, Urine pH 6.0, Ur Specific [place] 1.020, Urine Protein NEG, Urine Ketones NEG, Urine Nitrite NEG, Urine Bilirubin NEG, Urine Urobilinogen 0.2, Ur Leukocyte Esterase SMALL H, Ur Microscopic SEDIMENT EXAMINED, Urine RBC RARE, Urine WBC 5-10 H, Ur Epithelial Cells FEW, Urine Bacteria RARE H, Urine Hemoglobin NEG, Urine Glucose NEG Microbiology Date/Time Procedure - Status Source Growth 06/21 306 Urine Culture - COLB URINE ROUT 06/21 030 Influenza Virus A & B Rapid Smear - COLB NASOPHARYN 06/20 2307 Blood Culture - RES BLOOD 06/20 2307 Blood Culture - RES BLOOD Vital Signs Date Time Temp Pulse Resp B/P B/P Pulse O2 O2 Flow FiO2 Mean Ox Delivery Rate 06/21 1008 98.6 77 18 142/88 06/21 1008 98.6 77 18 142/88 06/21 1008 98.6 77 18 142/88 06/21 0844 98.6 77 18 142/88 98 06/21 0307 97.5 69 20 181/81 94 Room Air 06/20 1938 98.5 99 19 162/91 98 Room Air 06/20 1659 96 06/20 1653 98.1 95 16 178/92 95 Room Air
[2017-06-21 16:05] VITALS: BP 167/86
[2017-06-21 22:58] VITALS: BP 178/117
[2017-06-22 02:57] VITALS: BP 156/96
[2017-06-22 07:27] VITALS: BP 150/90
--- NOTE | 2017-06-22 07:58 | PN- Housestaff ---
Subjective Follow-up For: Left lower extremity cellulitis and worsening lower extremity edema Complaints: no complaints Subjective: Patient was seen and examined this morning. She was resting in bed comfortably without any complaints. Her right lower extremity edema was slightly better and left lower extremity was wrapped in Vinny bandages. Patient was keeping his lower extremities elevated. She remained stable and afebrile. Review of Systems Constitutional: Denies: chills, diaphoresis, malaise. Cardiovascular: Reports: edema. Denies: chest pain, orthopena. Respiratory: Denies: orthopnea, short of breath. Gastrointestinal: Denies: abdominal pain, constipation, diarrhea. Genitourinary: Denies: dysuria, hematuria. Musculoskeletal: Denies: back pain, joint pain. Skin: Reports: see HPI. Objective Last 24 Hrs of Vital Signs/I&O Vital Signs Date Time Temp Pulse Resp B/P B/P Pulse O2 O2 Flow FiO2 Mean Ox Delivery Rate 06/22 1421 97.9 66 20 128/80 93 Room Air 06/22 1019 74 144/88 06/22 0951 74 144/88 06/22 0950 74 144/88 06/22 0727 97.8 69 20 150/90 97 Room Air 06/22 0257 66 156/96 06/21 2258 97.8 81 20 178/117 97 Room Air 06/21 2202 80 162/78 06/21 1727 98.3 80 18 162/78 96 Room Air 06/21 1605 98.1 81 18 167/86 96 Room Air Intake & Output 06/22 1600 06/22 0800 06/22 0000 Intake Total 980 1155 250 Output Total 700 300 Balance 280 855 250 Intake, IV 260 675 10 Intake, Oral 720 480 240 Number 1 0 0 Bowel Movements Output, Urine 700 300 Patient 289 lb Weight Weight Bed scale Measurement Method Physical Exam General Appearance: Alert, Oriented X3, Cooperative, No Acute Distress Skin: were significant for bilateral lower extremity venous status changes with erythema and scaly rash. Lungs: Normal Air Movement Abdomen: Soft, No Tenderness Extremities: 4+ bilateral lower extremity edema left more than right Current Medications: Current Medications Sig/Cristine Start time Last Medication Dose Route Stop Time Status Admin Acetaminophen 650 MG Q6P PRN 06/20 2230 AC PO Acetaminophen 1,000 MG Q6P PRN 06/20 2230 AC IV Amlodipine Besylate 10 MG DAILY 06/21 1000 AC 06/22 PO 0951 Ampicillin Sodium/ 1,500 MG Q6 06/20 2359 AC 06/22 Sulbactam Sodium IV 1226 Sodium Chloride 100 ML Carvedilol 6.25 MG BID 06/21 1000 AC 06/22 PO 1019 Clopidogrel Bisulfate 75 MG DAILY 06/21 1000 AC 06/22 PO 0951 Enoxaparin Sodium 40 MG DAILY 06/21 1000 AC 06/22 SC 0951 Fluoxetine HCl 20 MG DAILY 06/21 1000 AC 06/22 PO 0951 Furosemide 40 MG DAILY 06/21 1000 AC 06/22 PO 0951 Insulin Aspart 0 TIDAC 06/21 0800 AC 06/22 SC 1226 Levothyroxine Sodium 0.15 MG DAILY AC 06/21 0700 AC 06/22 PO 0847 Losartan Potassium 50 MG DAILY 06/21 1000 AC 06/22 PO 0950 Sodium Chloride 1,000 ML Q13H 06/20 2215 DC 06/22 IV 0021 Last 24 Hrs of Lab/Codey Results Last 24 Hrs of Labs/Mics: Laboratory Tests 06/22/17 0733: Anion Gap 16, Estimated GFR > 60, BUN/Creatinine Ratio 23.3, CBC w Diff NO MAN DIFF REQ, RBC 4.82, MCV 86.0, MCH 28.6, RDW 14.3, MPV 10.0, Gran % 68.4, Lymphocytes % 20.6, Monocytes % 6.8, Eosinophils % 3.9, Basophils % 0.3, Absolute Granulocytes 5.1, Absolute Lymphocytes 1.5, Absolute Monocytes 0.5, Absolute Eosinophils 0.3, Absolute Basophils 0, PUBS MCHC 33.3 Microbiology 06/21 2229 NASOPHARYN: Influenza Virus A & B Rapid Smear - COMP Assessment/Plan Assessment: Patient is a obese 76-year-old woman with past medical history significant for atrial fibrillation(not on anticoagulation) history of stroke on Plavix, history of hypertension and hyperlipidemia, CHF, diabetes mellitus, history of anxiety depression, remote history of MRSA infection presented to the ED for the evaluation of generalized weakness and malaise. Vitals on admission 98.1, pulse 95, respiratory rate 16, blood pressure 178/90 on room air Pertinent labs on admission, WBC count H&H stable elevated anion gap and elevated BUN 23 Doppler venous ultrasound to rule out any underlying DVT chest x-ray normal Problem list Increased left lower extremity redness and swelling possible underlying cellulitis /status dermatitis Postnasal drip with worsening weakness and lethargy rule out influenza History of atrial fibrillation History of stroke History of hypertension hyperlipidemia History of diabetes History of anxiety depression PLAN: Increased left lower extremity redness and swelling possible underlying cellulitis /status dermatitis Admit the patient [facility] floor * Continue with IV Unasyn for possible cellulitis * Wound consultation was placed and appreciated. We will keep lower extremity elevated with vinny wrap awaiting cultures results to come back Postnasal drip with worsening weakness and lethargy rule out influenza * Pending rapid flu History of atrial fibrillation and systolic heart failure * Continue carvedilol * Lasix History of stroke * Continue Plavix. History of hypertension and hyperlipidemia * Continue medications. History of diabetes * Hold hypoglycemics * Start the patient on sliding scale with Accu-Cheks History of anxiety depression * Continue fluoxetine * DVT prophylaxis: Subcutaneous Lovenox Multivitamin with IV Tylenol Patient is full code Problem List: 1. Cellulitis Pain Ratin Pain Location: na Pain Goal: Remain pain free Pain Plan: tylenol Tomorrow's Labs & Rationales: cbc and bep
[2017-06-22 08:10] LABS: ABSOLUTE BASOPHIL COUNT 0 /CUMM (0.0-0.2); ABSOLUTE EOSINOPHIL COUNT 0.3 /CUMM (0.0-0.7); ABSOLUTE GRANULOCYTE CT 5.1 /CUMM (1.4-6.5); ABSOLUTE LYMPH COUNT 1.5 /CUMM (1.2-3.4); ABSOLUTE MONOCYTE COUNT 0.5 /CUMM (0.10-0.60); BASOPHIL % 0.3 % (0.0-2.0); EOSINOPHIL % 3.9 % (0-5); GRANULOCYTE % 68.4 % (42.2-75.2); HEMATOCRIT 41.4 % (37-47); MEAN CORPUSCULAR HGB 28.6 PG (27.0-31.0); MEAN CORPUSCULAR HGB CONC 33.3 G/DL (33.0-37.0); PLATELET COUNT 157 /CUMM (130-400); RBC DISTRIBUTION WIDTH 14.3 % (11.5-14.5); RED BLOOD CELL CT 4.82 /CUMM (4.20-5.40); WHITE BLOOD CELL COUNT 7.4 /CUMM (4.8-10.8)
--- NOTE | 2017-06-22 08:57 | PN- Wound Care ---
Subjective Subjective: Patient feels well without complaints Objective Vital Signs and I&Os Vital Signs Result Date Time Pulse Ox 97 06/22 726 B/P 150/90 06/22 726 O2 Delivery Room Air 06/22 726 Temp 97.8 06/22 726 Pulse 69 06/22 726 Resp 20 06/22 726 Intake & Output 06/22 0000 06/21 1600 06/21 0800 Intake Total 250 340 Output Total Balance 250 340 Intake, IV 10 100 Intake, Oral 240 240 Number 0 Bowel Movements Left lower extremity erythema remains edema is somewhat diminished there are no open ulcers. Impression/Plan Impression/Plan Impression/Plan: 76-year-old morbidly obese with atrial fibrillation and congestive heart failure chronic venous disease chronic edema nonadherent with the use of compression stockings presents with weakness and increased lower extremity edema left greater than right with significant erythema. Her white count and temperature are normal suggesting that this may be chronic inflammation rather than cellulitis. Recommend follow-up cultures aggressive leg elevation mild negative fluid balance. The use of Vinny wrap for the left leg from the foot to below the knee can be utilized in conjunction with elevation edema appears somewhat improved with bedrest but her legs need to be effectively elevated. Continue Vinny wrap from her toes to below her knee. If cultures remain negative consider oral antibiotics and discharge home wound care follow-up
--- NOTE | 2017-06-22 13:21 | PN- Att Addend ---
Attending Addendum Attending Brief Note Patient looking and feeling better sitting in the chair elevating her leg the swelling is down but the rest of the leg is covered. Was seen by technical service specialist I'll signs are stable no fever, no other changes continue present treatments, follow-up labs. Intake & Output 06/22 1600 06/22 0400 06/21 0400 06/20 0400 Intake Total 1155 250 340 500 Output Total 300 251 Balance 855 250 340 249 Intake, IV 675 10 100 500 Intake, Oral 480 240 240 Number 0 0 Bowel Movements Output, Stool 1 Output, Urine 300 250 Patient 289 lb 289 lb Weight Weight Bed scale Reported by Patient Measurement Method Laboratory Tests 06/22/17 0733: Anion Gap 16, Estimated GFR > 60, BUN/Creatinine Ratio 23.3, CBC w Diff NO MAN DIFF REQ, RBC 4.82, MCV 86.0, MCH 28.6, RDW 14.3, MPV 10.0, Gran % 68.4, Lymphocytes % 20.6, Monocytes % 6.8, Eosinophils % 3.9, Basophils % 0.3, Absolute Granulocytes 5.1, Absolute Lymphocytes 1.5, Absolute Monocytes 0.5, Absolute Eosinophils 0.3, Absolute Basophils 0, PUBS MCHC 33.3 06/21/17 0559: Anion Gap 14, Estimated GFR > 60, BUN/Creatinine Ratio 26.7 H, CBC w Diff NO MAN DIFF REQ, RBC 4.75, MCV 85.4, MCH 28.6, RDW 14.3, MPV 8.4, Gran % 71.2, Lymphocytes % 18.4 L, Monocytes % 6.7, Eosinophils % 3.3, Basophils % 0.4, Absolute Granulocytes 6.0, Absolute Lymphocytes 1.5, Absolute Monocytes 0.6, Absolute Eosinophils 0.3, Absolute Basophils 0, PUBS MCHC 33.4 06/20/17 1817: Anion Gap 17 H, Estimated GFR > 60, BUN/Creatinine Ratio 32.9 H, Glucose 222 H, Calcium 9.5, Total Bilirubin 0.5, AST 21, ALT 44, Alkaline Phosphatase 117, Troponin I < 0.01, Total Protein 7.8, Albumin 4.6, Globulin 3.2, Albumin/ Globulin Ratio 1.4, PT 10.6, INR 1.01, APTT 27, CBC w Diff NO MAN DIFF REQ, RBC 5.26, MCV 86.5, MCH 27.8, RDW 14.8 H, MPV 9.5, Gran % 70.9, Lymphocytes % 19.1 L, Monocytes % 6.6, Eosinophils % 3.1, Basophils % 0.3, Absolute Granulocytes 6.9 H, Absolute Lymphocytes 1.9, Absolute Monocytes 0.6, Absolute Eosinophils 0.3, Absolute Basophils 0, PUBS MCHC 32.2 L 06/20/17 165: Urine Color YEL, Urine Clarity CLEAR, Urine pH 6.0, Ur Specific [place] 1.020, Urine Protein NEG, Urine Ketones NEG, Urine Nitrite NEG, Urine Bilirubin NEG, Urine Urobilinogen 0.2, Ur Leukocyte Esterase SMALL H, Ur Microscopic SEDIMENT EXAMINED, Urine RBC RARE, Urine WBC 5-10 H, Ur Epithelial Cells FEW, Urine Bacteria RARE H, Urine Hemoglobin NEG, Urine Glucose NEG Microbiology 06/21 2229 NASOPHARYN: Influenza Virus A & B Rapid Smear - COMP 06/20 2307 BLOOD: Blood Culture - RES 06/20 2307 BLOOD: Blood Culture - RES 06/20 1658 URINE ROUT: Urine Culture - RES GRAM NEGATIVE RODS Microbiology 06/21 2229 NASOPHARYN: Influenza Virus A & B Rapid Smear - COMP 06/20 2307 BLOOD: Blood Culture - RES 06/20 2307 BLOOD: Blood Culture - RES 06/20 1658 URINE ROUT: Urine Culture - RES GRAM NEGATIVE RODS Vital Signs Date Time Temp Pulse Resp B/P B/P Pulse O2 O2 Flow FiO2 Mean Ox Delivery Rate 06/22 1019 74 144/88 06/22 0951 74 144/88 06/22 0950 74 144/88 06/22 0727 97.8 69 20 150/90 97 Room Air 06/22 0257 66 156/96 06/21 2258 97.8 81 20 178/117 97 Room Air 06/21 2202 80 162/78 06/21 1727 98.3 80 18 162/78 96 Room Air 06/21 1605 98.1 81 18 167/86 96 Room Air
[2017-06-22 14:21] VITALS: BP 128/80
[2017-06-22 22:26] VITALS: BP 140/90
[2017-06-23 06:43] VITALS: BP 160/80
--- NOTE | 2017-06-23 07:30 | PN- Housestaff ---
Subjective Follow-up For: Cellulitis Complaints: no complaints Subjective: Patient was seen and examined this morning. She was lying comfortably on bed without any complaints. Her edema is slightly better. She is stable enough to discharged to [facility] once we find a bed and would change antibiotics to oral. Review of Systems Constitutional: Denies: diaphoresis, fever. EENTM: Denies: blurred vision, visual changes. Cardiovascular: Reports: edema. Denies: palpitations. Respiratory: Denies: hemoptysis, orthopnea. Gastrointestinal: Denies: bloating, diarrhea. Objective Last 24 Hrs of Vital Signs/I&O Vital Signs Date Time Temp Pulse Resp B/P B/P Pulse O2 O2 Flow FiO2 Mean Ox Delivery Rate 06/23 1113 Room Air 06/23 09 68 156/78 06/23 0921 68 156/78 06/23 0921 68 156/78 06/23 0643 97.8 68 18 160/80 94 Room Air 06/22 2226 97.6 74 20 140/90 94 Room Air 06/22 2209 74 140/90 06/22 1421 97.9 66 20 128/80 93 Room Air Intake & Output 06/23 1600 06/23 0800 06/23 0000 Intake Total 700 250 Output Total Balance 700 250 Intake, IV 220 10 Intake, Oral 480 240 Number 0 0 Bowel Movements Physical Exam General Appearance: Alert, Oriented X3, Cooperative, No Acute Distress Cardiovascular: Regular Rate, Normal S1, Normal S2 Lungs: Normal Air Movement Abdomen: Soft, No Tenderness Neurological: Normal Gait, Normal Speech Current Medications: Current Medications Sig/Cristine Start time Last Medication Dose Route Stop Time Status Admin Acetaminophen 650 MG Q6P PRN 06/20 2230 AC PO Acetaminophen 1,000 MG Q6P PRN 06/20 2230 AC IV Amlodipine Besylate 10 MG DAILY 06/21 1000 AC 06/23 PO 0921 Amoxicillin/ 875 MG Q12 06/23 2200 AC Clavulanate Potassium PO Ampicillin Sodium/ 1,500 MG Q6 06/20 2359 DC 06/23 Sulbactam Sodium IV 1145 Sodium Chloride 100 ML Carvedilol 6.25 MG BID 06/21 1000 AC 06/23 PO 0921 Clopidogrel Bisulfate 75 MG DAILY 06/21 1000 AC 06/23 PO 0921 Enoxaparin Sodium 40 MG DAILY 06/21 1000 AC 06/23 SC 0920 Fluoxetine HCl 20 MG DAILY 06/21 1000 AC 06/23 PO 0921 Furosemide 40 MG DAILY 06/21 1000 AC 06/23 PO 0921 Insulin Aspart 0 TIDAC 06/21 0800 AC 06/23 SC 1142 Levothyroxine Sodium 0.15 MG DAILY AC 06/21 0700 AC 06/23 PO 0633 Losartan Potassium 50 MG DAILY 06/21 1000 AC 06/23 PO 0921 Last 24 Hrs of Lab/Codey Results Last 24 Hrs of Labs/Mics: Laboratory Tests 06/23/17 0700: Anion Gap 14, Estimated GFR > 60, BUN/Creatinine Ratio 25.7 H, CBC w Diff NO MAN DIFF REQ, RBC 4.74, MCV 85.7, MCH 28.7, RDW 14.4, MPV 9.4, Gran % 62.8, Lymphocytes % 24.1, Monocytes % 8.2, Eosinophils % 4.4, Basophils % 0.5, Absolute Granulocytes 4.4, Absolute Lymphocytes 1.7, Absolute Monocytes 0.6, Absolute Eosinophils 0.3, Absolute Basophils 0, PUBS MCHC 33.5 Assessment/Plan Assessment: Patient is a obese 76-year-old woman with past medical history significant for atrial fibrillation(not on anticoagulation) history of stroke on Plavix, history of hypertension and hyperlipidemia, CHF, diabetes mellitus, history of anxiety depression, remote history of MRSA infection presented to the ED for the evaluation of generalized weakness and malaise. Vitals on admission 98.1, pulse 95, respiratory rate 16, blood pressure 178/90 on room air Pertinent labs on admission, WBC count H&H stable elevated anion gap and elevated BUN 23 Doppler venous ultrasound to rule out any underlying DVT chest x-ray normal Problem list Increased left lower extremity redness and swelling possible underlying cellulitis /status dermatitis Postnasal drip with worsening weakness and lethargy rule out influenza History of atrial fibrillation History of stroke History of hypertension hyperlipidemia History of diabetes History of anxiety depression PLAN: Increased left lower extremity redness and swelling possible underlying cellulitis /status dermatitis Admit the patient [facility] floor * We'll change her antibiotics to oral today. She is stable enough to discharged to [facility] recommended by physical therapy. * Wound consultation was placed and appreciated. We will keep lower extremity elevated with cony wrap and she will discharge to short-term rehabilitation with instruction to follow up with wound center History of atrial fibrillation and systolic heart failure * Continue carvedilol * Lasix History of stroke * Continue Plavix. History of hypertension and hyperlipidemia * Continue medications. History of diabetes * Hold hypoglycemics * Start the patient on sliding scale with Accu-Cheks History of anxiety depression * Continue fluoxetine * DVT prophylaxis: Subcutaneous Lovenox Multivitamin with IV Tylenol Patient is full code Problem List: 1. Cellulitis Pain Ratin Pain Location: Not applicable Pain Goal: Remain pain free Pain Plan: Tylenol Tomorrow's Labs & Rationales: None
[2017-06-23 08:10] LABS: ABSOLUTE BASOPHIL COUNT 0 /CUMM (0.0-0.2); ABSOLUTE EOSINOPHIL COUNT 0.3 /CUMM (0.0-0.7); ABSOLUTE GRANULOCYTE CT 4.4 /CUMM (1.4-6.5); ABSOLUTE LYMPH COUNT 1.7 /CUMM (1.2-3.4); ABSOLUTE MONOCYTE COUNT 0.6 /CUMM (0.10-0.60); BASOPHIL % 0.5 % (0.0-2.0); EOSINOPHIL % 4.4 % (0-5); GRANULOCYTE % 62.8 % (42.2-75.2); HEMATOCRIT 40.6 % (37-47); MEAN CORPUSCULAR HGB 28.7 PG (27.0-31.0); MEAN CORPUSCULAR HGB CONC 33.5 G/DL (33.0-37.0); MEAN CORPUSCULAR VOLUME 85.7 FL (81.0-99.0); MEAN PLATELET VOLUME 9.4 FL (7.4-10.4); PLATELET COUNT 171 /CUMM (130-400); RBC DISTRIBUTION WIDTH 14.4 % (11.5-14.5); RED BLOOD CELL CT 4.74 /CUMM (4.20-5.40)
[2017-06-23] MEDS ORDERED: AUGMENTIN 875-1 EACH PO (09:53)
--- NOTE | 2017-06-23 09:55 | Patient Discharge Instructions ---
Discharge Instructions General Discharge Information You were seen/treated for: Cellulitis Special Instructions: plz f/u with your PCP in 1 week of discharge Please kepp you legs elevated and wrap left leg with cony banadage. Please follow up with wound center on schedule days Diet Recommended Diet: Diabetic Activity Additional ACTIVITY Info: as tolerated with assistance Acute Coronary Syndrome Inclusion Criteria At DC or during hospital stay patient has or had the following: ACS DIAGNOSIS No Discharge Core Measures Meds if any: Prescribed or Continued at Discharge Meds if any: NOT Prescribed or Continued at Discharge Congestive Heart Failure Inclusion Criteria At DC or during hospital stay patient has or had the following: CHF DIAGNOSIS No Discharge Core Measures Meds if any: Prescribed or Continued at Discharge Meds if any: NOT Prescribed or Continued at Discharge Cerebrovascular accident Inclusion Criteria At DC or during hospital stay patient has or had the following: CVA/TIA Diagnosis No Discharge Core Measures Meds if any: Prescribed or Continued at Discharge Meds if any: NOT Prescribed or Continued at Discharge Venous thromboembolism Inclusion Criteria VTE Diagnosis No VTE Type NONE VTE Confirmed by (Test) NONE Discharge Core Measures - Per Current guidelines, there needs to be overlap - treatment for the first 5 days of Warfarin therapy. - If discharged on Warfarin prior to 5 days of - overlap therapy, the patient will need to be - assessed for post discharge needs including - *Post discharge parental anticoagulation - *Warfarin and/or parental anticoagulation education - *Follow up date to check INR post discharge At least 5 days overlap therapy as Inpatient No Meds if any: Prescribed or Continued at Discharge Note: Overlap Therapy is Warfarin and Anticoagulant Meds if any: NOT Prescribed or Continued at Discharge
--- NOTE | 2017-06-23 11:13 | PN- Att Addend ---
Attending Addendum Attending Brief Note No new issues still weak. Leg is wrapped, the swelling seems down. Vital signs are stable no fever with no major changes on physical if needed white count within normal limits. She will be going to short-term rehabilitation today if bed is found see the CMR and the [facility] if she goes locally I will follow the patient there. Intake & Output 06/23 1600 06/23 0400 06/22 1600 06/22 0400 06/21 1600 06/21 0400 Intake Total 217 676 6356 250 340 500 Output Total 1000 251 Balance 453 713 6475 250 340 249 Intake, IV 220 10 935 10 100 500 Intake, Oral 745 954 1739 240 240 Number 0 0 1 0 Bowel Movements Output, Stool 1 Output, Urine 1000 250 Patient 289 lb 289 lb Weight Weight Bed scale Reported by Patient Measurement Method Current Medications Sig/Cristine Start time Last Medication Dose Route Stop Time Status Admin Acetaminophen 650 MG Q6P PRN 06/20 2230 AC PO Acetaminophen 1,000 MG Q6P PRN 06/20 2230 AC IV Amlodipine Besylate 10 MG DAILY 06/21 1000 AC 06/23 PO 0921 Ampicillin Sodium/ 1,500 MG Q6 06/20 2359 AC 06/23 Sulbactam Sodium IV 0633 Sodium Chloride 100 ML Carvedilol 6.25 MG BID 06/21 1000 AC 06/23 PO 0921 Clopidogrel Bisulfate 75 MG DAILY 06/21 1000 AC 06/23 PO 0921 Enoxaparin Sodium 40 MG DAILY 06/21 1000 AC 06/23 SC 0920 Fluoxetine HCl 20 MG DAILY 06/21 1000 AC 06/23 PO 0921 Furosemide 40 MG DAILY 06/21 1000 AC 06/23 PO 0921 Insulin Aspart 0 TIDAC 06/21 0800 AC 06/23 SC 0818 Levothyroxine Sodium 0.15 MG DAILY AC 06/21 0700 AC 06/23 PO 0633 Losartan Potassium 50 MG DAILY 06/21 1000 AC 06/23 PO 0921 Laboratory Tests 06/23/17 0700: Anion Gap 14, Estimated GFR > 60, BUN/Creatinine Ratio 25.7 H, CBC w Diff NO MAN DIFF REQ, RBC 4.74, MCV 85.7, MCH 28.7, RDW 14.4, MPV 9.4, Gran % 62.8, Lymphocytes % 24.1, Monocytes % 8.2, Eosinophils % 4.4, Basophils % 0.5, Absolute Granulocytes 4.4, Absolute Lymphocytes 1.7, Absolute Monocytes 0.6, Absolute Eosinophils 0.3, Absolute Basophils 0, [facility] MCHC 33.5 06/22/17 0733: Anion Gap 16, Estimated GFR > 60, BUN/Creatinine Ratio 23.3, CBC w Diff NO MAN DIFF REQ, RBC 4.82, MCV 86.0, MCH 28.6, RDW 14.3, MPV 10.0, Gran % 68.4, Lymphocytes % 20.6, Monocytes % 6.8, Eosinophils % 3.9, Basophils % 0.3, Absolute Granulocytes 5.1, Absolute Lymphocytes 1.5, Absolute Monocytes 0.5, Absolute Eosinophils 0.3, Absolute Basophils 0, [facility] MCHC 33.3 06/21/17 0559: Anion Gap 14, Estimated GFR > 60, BUN/Creatinine Ratio 26.7 H, CBC w Diff NO MAN DIFF REQ, RBC 4.75, MCV 85.4, MCH 28.6, RDW 14.3, MPV 8.4, Gran % 71.2, Lymphocytes % 18.4 L, Monocytes % 6.7, Eosinophils % 3.3, Basophils % 0.4, Absolute Granulocytes 6.0, Absolute Lymphocytes 1.5, Absolute Monocytes 0.6, Absolute Eosinophils 0.3, Absolute Basophils 0, [facility] MCHC 33.4 06/20/17 1817: Anion Gap 17 H, Estimated GFR > 60, BUN/Creatinine Ratio 32.9 H, Glucose 222 H, Calcium 9.5, Total Bilirubin 0.5, AST 21, ALT 44, Alkaline Phosphatase 117, Troponin I < 0.01, Total Protein 7.8, Albumin 4.6, Globulin 3.2, Albumin/ Globulin Ratio 1.4, PT 10.6, INR 1.01, APTT 27, CBC w Diff NO MAN DIFF REQ, RBC 5.26, MCV 86.5, MCH 27.8, RDW 14.8 H, MPV 9.5, Gran % 70.9, Lymphocytes % 19.1 L, Monocytes % 6.6, Eosinophils % 3.1, Basophils % 0.3, Absolute Granulocytes 6.9 H, Absolute Lymphocytes 1.9, Absolute Monocytes 0.6, Absolute Eosinophils 0.3, Absolute Basophils 0, [facility] MCHC 32.2 L 06/20/17 1659: Urine Color YEL, Urine Clarity CLEAR, Urine pH 6.0, Ur Specific [place] 1.020, Urine Protein NEG, Urine Ketones NEG, Urine Nitrite NEG, Urine Bilirubin NEG, Urine Urobilinogen 0.2, Ur Leukocyte Esterase SMALL H, Ur Microscopic SEDIMENT EXAMINED, Urine RBC RARE, Urine WBC 5-10 H, Ur Epithelial Cells FEW, Urine Bacteria RARE H, Urine Hemoglobin NEG, Urine Glucose NEG Microbiology 06/21 2229 NASOPHARYN: Influenza Virus A & B Rapid Smear - COMP 06/20 2307 BLOOD: Blood Culture - RES 06/20 2307 BLOOD: Blood Culture - RES 06/20 1658 URINE ROUT: Urine Culture - RES GRAM NEGATIVE RODS Microbiology 06/21 2229 NASOPHARYN: Influenza Virus A & B Rapid Smear - COMP 06/20 2307 BLOOD: Blood Culture - RES 06/20 2307 BLOOD: Blood Culture - RES 06/20 1658 URINE ROUT: Urine Culture - RES GRAM NEGATIVE RODS Vital Signs Date Time Temp Pulse Resp B/P B/P Pulse O2 O2 Flow FiO2 Mean Ox Delivery Rate 06/23 0921 68 156/78 06/23 0921 68 156/78 06/23 0921 68 156/78 06/23 0643 97.8 68 18 160/80 94 Room Air 06/22 2226 97.6 74 20 140/90 94 Room Air 06/22 2209 74 140/90 06/22 1421 97.9 66 20 128/80 93 Room Air
--- NOTE | 2017-06-23 12:15 | Discharge Summary ---
Visit Information Visit Dates Admission Date: 06/20/17 Discharge Date: 06/25/17 Hospital Course Course Attending Physician: Rangel Vu MD Primary Care Physician: Horace GARG,Rangel Hospital Course: Patient is a obese 76-year-old woman with past medical history significant for atrial fibrillation(not on anticoagulation) history of stroke on Plavix, , history of hypertension and hyperlipidemia, CHF, diabetes mellitus, remote history of MRSA infection presented to the ED for the evaluation of generalized weakness, malaise and worsening left lower extremity redness and swelling. Patient was admitted on general medical floor and following issues were addressed Problem #1 increased left lower extremity redness and swelling most likely due to cellulitis and chronic venous stasis wound consultation was placed. Initially patient was treated with IV Unasyn with significant improvement in her symptoms and changed to oral Augmentin later. Her legs were Elevated and left lower extremity was wrapped with Vinny wrap changed daily with improvement. Patient would be discharged to short-term rehabilitation and she would take five-day course of Augmentin there. DVT was ruled out with Doppler ultrasound. Problem #2 History of atrial fibrillation and systolic heart failure not on any anticoagulation Patient was continued on her home dose of carvedilol and Lasix Problem #3 History of stroke Her Plavix was continued during hospital stay Problem #4 History of hypertension and dyslipidemia Her home medications were continued and we will discharge her on same Problem #5 Deconditioning and worsening fatigue Patient was evaluated by physical therapy and due to worsening fatigue and deconditioning was suggested to discharge to rehabilitation to get her strength back and get to her baseline. Complications: None Allergies: Coded Allergies: latex (Severe, RASH 08/02/15) lactose (Severe, DIARRHEA 08/02/15) Significant Procedures: SERVICE DATE: 06/20/17 EXAM TYPE: US - US-UNILATERAL VENOUS DOPPLER EXAMINATION: US TRIPLEX LOWER EXTREMITY, LEFT CLINICAL INFORMATION: Left lower extremity edema. COMPARISON: September 10, 2016. TECHNIQUE: Color-flow triplex imaging with spectral analysis and compression Doppler were performed on the lower extremity. FINDINGS: Respiratory variation, normal compression and augmented flow are noted throughout the lower extremity. The visualized common femoral vein, superficial femoral vein, profunda femoral vein, popliteal vein and midcalf peroneal and posterior tibial venous segments show no evidence of deep venous thrombosis. There is no Ballard's cyst. IMPRESSION: Normal triplex scan without evidence of deep venous thrombosis involving the lower extremity. Disposition Summary Disposition Principal Diagnosis: Left lower extremity cellulitis Additional Diagnosis: Chronic venous stasis with bilateral lower extremity edema Hypertension Discharge Disposition: SNF Discharge Instructions General Discharge Information Code Status: Full Code Patient's Diet: Diabetic Patient's Activity: As tolerated with assistance Follow-Up Instructions/Appts: plz f/u with your PCP in 1 week of discharge Please kepp you legs elevated and wrap left leg with vinny banadage. Please follow up with wound center on schedule days Medications at Discharge Discharge Medications: Continue taking these medications: Amlodipine Besylate (Amlodipine Besylate) 10 MG TABLET 1 Tablet ORAL DAILY Qty = 30 Comments: Last Taken: 06/25/17 Time: 9:00 AM Valsartan (Valsartan) 320 MG TABLET 1 Tablet ORAL DAILY Qty = 30 Comments: Last Taken: 06/25/17 Time: 9:00 AM (COZAAR 50 MG GIVEN) Clopidogrel Bisulfate (Clopidogrel) 75 MG TABLET 1 Tablet ORAL DAILY Qty = 30 Comments: Last Taken: 06/25/17 Time: 9:00 AM Levothyroxine Sodium (Levothyroxine Sodium) 150 MCG TABLET 1 Tablet ORAL DAILY Qty = 30 Comments: Last Taken: 06/25/17 Time: 6:00 AM Metformin HCl (Metformin HCl ER) 500 MG [id number] 1 Tablet ORAL TWICE DAILY Qty = 180 Comments: NOT GIVEN AT HOSPITAL Fluoxetine HCl (Fluoxetine HCl) 20 MG CAPSULE 1 Capsule ORAL DAILY Qty = 30 Comments: Last Taken: 06/25/17 Time: 9:00 AM Furosemide (Furosemide) 40 MG TABLET 1 Tablet ORAL DAILY Qty = 30 Comments: Last Taken: 06/25/17 Time: 9:00 AM Atorvastatin Calcium (Atorvastatin Calcium) 40 MG TABLET 1 Tablet ORAL DAILY Qty = 30 Comments: NOT GIVEN IN HOSPITAL Carvedilol Phosphate (Coreg Cr) 10 MG CPMP.24HR 1 Capsule ORAL DAILY Qty = 30 Comments: Last Taken: 06/25/17 Time: 9:00 AM Ergocalciferol (Vitamin D2) (Vitamin D2) 50,000 UNIT CAPSULE 1 Capsule ORAL As Directed Qty = 6 Comments: NOT GIVEN AT HOSPITAL Liraglutide (Victoza 3-Bang) 0.6 MG/0.1 ML (18 MG/3 ML) PEN.INJCTR 1.2 Milligram Inject into fatty tissue DAILY Qty = 18 Comments: NOT GIVEN AT HOSPITAL Start taking the following new medications: Amoxicillin/Potassium Clav (Augmentin 875-125 Tablet) 875 MG-125 MG TABLET 1 Tablet ORAL TWICE DAILY Qty = 14 No Refills Comments: Last Taken: 06/25/17 Time: 9:00 AM Copies To: Horace GARG,Rangel Attending Review Statement Documenting Attending: Rangel Vu MD
[2017-06-23 13:37] VITALS: BP 156/78
[2017-06-23 14:52] VITALS: BP 150/84
[2017-06-23 22:51] VITALS: BP 144/90
[2017-06-24 06:37] VITALS: BP 126/74
[2017-06-24 08:34] LABS: ABSOLUTE BASOPHIL COUNT 0 /CUMM (0.0-0.2); ABSOLUTE EOSINOPHIL COUNT 0.3 /CUMM (0.0-0.7); ABSOLUTE GRANULOCYTE CT 4.8 /CUMM (1.4-6.5); ABSOLUTE LYMPH COUNT 1.9 /CUMM (1.2-3.4); ABSOLUTE MONOCYTE COUNT 0.5 /CUMM (0.10-0.60); BASOPHIL % 0.3 % (0.0-2.0); EOSINOPHIL % 3.6 % (0-5); GRANULOCYTE % 63.8 % (42.2-75.2); HEMATOCRIT 39.7 % (37-47); MEAN CORPUSCULAR HGB 28.5 PG (27.0-31.0); MEAN CORPUSCULAR HGB CONC 33.2 G/DL (33.0-37.0); MEAN CORPUSCULAR VOLUME 85.8 FL (81.0-99.0); MEAN PLATELET VOLUME 9.5 FL (7.4-10.4); PLATELET COUNT 157 /CUMM (130-400); RBC DISTRIBUTION WIDTH 14.1 % (11.5-14.5); RED BLOOD CELL CT 4.62 /CUMM (4.20-5.40); WHITE BLOOD CELL COUNT 7.5 /CUMM (4.8-10.8)
--- NOTE | 2017-06-24 09:00 | PN- Housestaff ---
Subjective Follow-up For: Left leg cellulitis Nonbloody watery diarrhea Subjective: Seen and examined at bedside Patient is stable, reportedly her left leg swelling and erythema is improving. She did have 2 large loose watery bowel movements today morning. She did have some crampy abdominal pain before the bowel movement however didn't have any fever. No nausea/vomiting Review of Systems Constitutional: Reports: see HPI. Comments: Otherwise negative Objective Last 24 Hrs of Vital Signs/I&O Vital Signs Date Time Temp Pulse Resp B/P B/P Pulse O2 O2 Flow FiO2 Mean Ox Delivery Rate 06/24 0637 97.6 56 20 126/74 96 06/23 2251 98.4 65 20 144/90 96 Room Air 06/23 2053 65 144/90 06/23 1452 97.8 65 20 150/84 91 Room Air 06/23 1337 97.8 68 18 156/78 06/23 1113 Room Air 06/23 0921 68 156/78 06/23 0921 68 156/78 06/23 0921 68 156/78 Intake & Output 06/24 1600 06/24 0800 06/24 0000 Intake Total 250 930 Output Total 450 Balance 250 480 Intake, Oral 250 930 Output, Urine 450 Physical Exam General Appearance: Alert, Oriented X3, Cooperative, No Acute Distress Skin: No Rashes, dressing present in the left lower extremity HEENT: Atraumatic, PERRLA, EOMI Neck: Supple, No JVD Cardiovascular: Normal S1, Normal S2 Lungs: Clear to Auscultation, Normal Air Movement Abdomen: Normal Bowel Sounds, Soft, No Tenderness Neurological: Normal Tone, Sensation Intact Extremities: No Clubbing, No Cyanosis, edema 2+ Vascular: Normal Pulses, Pulses Symmetrical Current Medications: Current Medications Sig/Cristine Start time Last Medication Dose Route Stop Time Status Admin Acetaminophen 650 MG Q6P PRN 06/20 2230 AC PO Acetaminophen 1,000 MG Q6P PRN 06/20 2230 AC IV Amlodipine Besylate 10 MG DAILY 06/21 1000 AC 06/23 PO 09 Amoxicillin/ 875 MG Q12 06/230 AC 06/23 Clavulanate Potassium PO 205 Ampicillin Sodium/ 1,500 MG Q6 06/20 2359 DC 06/23 Sulbactam Sodium IV 1145 Sodium Chloride 100 ML Carvedilol 6.25 MG BID 06/21 1000 AC 06/23 PO 2053 Clopidogrel Bisulfate 75 MG DAILY 06/21 1000 AC 06/23 PO 09 Enoxaparin Sodium 40 MG DAILY 06/21 1000 AC 06/23 SC 0920 Fluoxetine HCl 20 MG DAILY 06/21 1000 AC 06/23 PO 0921 Furosemide 40 MG DAILY 06/21 1000 AC 06/23 PO 0921 Insulin Aspart 0 TIDAC 06/21 0800 AC 06/24 SC 0759 Levothyroxine Sodium 0.15 MG DAILY AC 06/21 0700 AC 06/24 PO 0609 Losartan Potassium 50 MG DAILY 06/21 1000 AC 06/23 PO 0921 Last 24 Hrs of Lab/Codey Results Last 24 Hrs of Labs/Mics: Laboratory Tests 06/24/17 0648: Anion Gap 11, Estimated GFR > 60, BUN/Creatinine Ratio 25.7 H, CBC w Diff NO MAN DIFF REQ, RBC 4.62, MCV 85.8, MCH 28.5, RDW 14.1, MPV 9.5, Gran % 63.8, Lymphocytes % 25.5, Monocytes % 6.8, Eosinophils % 3.6, Basophils % 0.3, Absolute Granulocytes 4.8, Absolute Lymphocytes 1.9, Absolute Monocytes 0.5, Absolute Eosinophils 0.3, Absolute Basophils 0, PUBS MCHC 33.2 Microbiology 06/24 1003 STOOL: Clostridium difficile Toxin A & B - COMP Assessment/Plan Assessment: Patient is a obese 76-year-old woman with past medical history significant for atrial fibrillation(not on anticoagulation) history of stroke on Plavix, history of hypertension and hyperlipidemia, CHF, diabetes mellitus, history of anxiety depression, remote history of MRSA infection presented to the ED for the evaluation of generalized weakness and malaise. Vitals on admission 98.1, pulse 95, respiratory rate 16, blood pressure 178/90 on room air Pertinent labs on admission, WBC count H&H stable elevated anion gap and elevated BUN 23 Doppler venous ultrasound to rule out any underlying DVT chest x-ray normal Problem list Increased left lower extremity redness and swelling possible underlying cellulitis /status dermatitis Postnasal drip with worsening weakness and lethargy rule out influenza History of atrial fibrillation History of stroke History of hypertension hyperlipidemia History of diabetes History of anxiety depression PLAN: Increased left lower extremity redness and swelling possible underlying cellulitis /status dermatitis Admit the patient [facility] floor * Currently on Augmentin. She is stable enough to discharged to [facility] recommended by physical therapy. * Wound consultation was placed and appreciated. We will keep lower extremity elevated with cony wrap and she will discharge to short-term rehabilitation with instruction to follow up with wound center Nonbloody watery diarrhea while on antibiotics Patient did have 2 large bowel movements without any hemodynamic instability. Given recent intake of antibiotics - started patient on lactobacillus and sent C. difficile toxin. Negative for C. difficile. If remains without any further bowel movements till tomorrow she should be stable to go to [facility] History of atrial fibrillation and systolic heart failure * Continue carvedilol * Lasix History of stroke * Continue Plavix. History of hypertension and hyperlipidemia * Continue medications. History of diabetes * Hold hypoglycemics * Start the patient on sliding scale with Accu-Cheks History of anxiety depression * Continue fluoxetine * DVT prophylaxis: Subcutaneous Lovenox Multivitamin with IV Tylenol Patient is full code Problem List: 1. Leg erythema 2. Left leg cellulitis 3. Diabetes mellitus Pain Ratin Pain Location: Left leg Pain Goal: Pain 4 or less Pain Plan: Tylenol Tomorrow's Labs & Rationales: None
[2017-06-24 14:23] VITALS: BP 124/64
--- NOTE | 2017-06-24 14:24 | PN- Att Addend ---
Attending Addendum Attending Brief Note Patient did not believe to short-term rehabilitation because she had some diarrhea. Vital signs are stable she has no fever and her abdomen is benign. No other changes tingling in treatment of the leg if the stools are negative for C. difficile than the patient can go to rehabilitation later on today Intake & Output 06/24 1600 06/24 0400 06/23 1600 06/23 0400 06/22 1600 06/22 0400 Intake Total 420 757 8962 250 2135 250 Output Total 2 829 958 4973 Balance 367 727 9647 250 1135 250 Intake, IV 330 10 935 10 Intake, Oral 751 081 4672 240 1200 240 Number 2 0 0 1 0 Bowel Movements Output, Stool 2 Output, Urine 897 882 4014 Patient 289 lb Weight Weight Bed scale Measurement Method Current Medications Sig/Cristine Start time Last Medication Dose Route Stop Time Status Admin Acetaminophen 650 MG Q6P PRN 06/20 2229 AC PO Acetaminophen 1,000 MG Q6P PRN 06/20 2229 AC IV Amlodipine Besylate 10 MG DAILY 06/21 1000 AC 06/24 PO 0947 Amoxicillin/ 875 MG Q12 06/23 2200 AC 06/24 Clavulanate Potassium PO 0946 Carvedilol 6.25 MG BID 06/21 1000 AC 06/24 PO 0947 Clopidogrel Bisulfate 75 MG DAILY 06/21 1000 AC 06/24 PO 0947 Enoxaparin Sodium 40 MG DAILY 06/21 1000 AC 06/24 SC 0946 Fluoxetine HCl 20 MG DAILY 06/21 1000 AC 06/24 PO 0947 Furosemide 40 MG DAILY 06/21 1000 AC 06/24 PO 0947 Insulin Aspart 0 TIDAC 06/21 0800 AC 06/24 IN 1214 Lactobacillus 1 CAP DAILY 06/24 1000 AC 06/24 Acidophilus PO 1213 Levothyroxine Sodium 0.15 MG DAILY AC 06/21 0700 AC 06/24 PO 0609 Losartan Potassium 50 MG DAILY 06/21 1000 AC 06/24 PO 0947 Laboratory Tests 06/24/17 0648: Anion Gap 11, Estimated GFR > 60, BUN/Creatinine Ratio 25.7 H, CBC w Diff NO MAN DIFF REQ, RBC 4.62, MCV 85.8, MCH 28.5, RDW 14.1, MPV 9.5, Gran % 63.8, Lymphocytes % 25.5, Monocytes % 6.8, Eosinophils % 3.6, Basophils % 0.3, Absolute Granulocytes 4.8, Absolute Lymphocytes 1.9, Absolute Monocytes 0.5, Absolute Eosinophils 0.3, Absolute Basophils 0, PUBS MCHC 33.2 06/23/17 0700: Anion Gap 14, Estimated GFR > 60, BUN/Creatinine Ratio 25.7 H, CBC w Diff NO MAN DIFF REQ, RBC 4.74, MCV 85.7, MCH 28.7, RDW 14.4, MPV 9.4, Gran % 62.8, Lymphocytes % 24.1, Monocytes % 8.2, Eosinophils % 4.4, Basophils % 0.5, Absolute Granulocytes 4.4, Absolute Lymphocytes 1.7, Absolute Monocytes 0.6, Absolute Eosinophils 0.3, Absolute Basophils 0, PUBS MCHC 33.5 06/22/17 0733: Anion Gap 16, Estimated GFR > 60, BUN/Creatinine Ratio 23.3, CBC w Diff NO MAN DIFF REQ, RBC 4.82, MCV 86.0, MCH 28.6, RDW 14.3, MPV 10.0, Gran % 68.4, Lymphocytes % 20.6, Monocytes % 6.8, Eosinophils % 3.9, Basophils % 0.3, Absolute Granulocytes 5.1, Absolute Lymphocytes 1.5, Absolute Monocytes 0.5, Absolute Eosinophils 0.3, Absolute Basophils 0, PUBS MCHC 33.3 Microbiology 06/24 1003 STOOL: Clostridium difficile Toxin A & B - COMP 06/21 2229 NASOPHARYN: Influenza Virus A & B Rapid Smear - COMP Microbiology 06/24 100 STOOL: Clostridium difficile Toxin A & B - COMP 06/21 2229 NASOPHARYN: Influenza Virus A & B Rapid Smear - COMP Vital Signs Date Time Temp Pulse Resp B/P B/P Pulse O2 O2 Flow FiO2 Mean Ox Delivery Rate 06/24 0947 70 126/74 06/24 0947 70 126/74 06/24 0947 70 126/74 06/24 0637 97.6 56 20 126/74 96 06/23 2251 98.4 65 20 144/90 96 Room Air 06/23 2053 65 144/90 06/23 1452 97.8 65 20 150/84 91 Room Air
[2017-06-24 14:32] VITALS: BP 124/64
[2017-06-24 21:23] VITALS: BP 144/90
[2017-06-24 23:27] VITALS: BP 144/90
[2017-06-25 06:12] VITALS: BP 146/88
[2017-06-25 11:21] VITALS: BP 124/64
[2017-06-25 15:06] VITALS: BP 140/90
--- NOTE | 2017-06-25 15:43 | PN- Att Addend ---
Attending Addendum Attending Brief Note No new issues and no diarrhea today the previous tumor was negative for C. difficile. Her vital signs are stable, no fever and no new changes on physical patient will be transferred to short-term rehabilitation later on today I will follow the patient over there, see discharge summary W 10 and CMR. Intake & Output 06/25 1600 06/25 0400 06/24 1600 06/24 0400 06/23 1600 06/23 0400 Intake Total 9920 333 3394 930 1610 250 Output Total 300 2 450 500 Balance 863 734 2864 480 1110 250 Intake, IV 330 10 Intake, Oral 9881 732 3953 930 1280 240 Number 0 2 0 0 Bowel Movements Output, Stool 2 Output, Urine 300 450 500 Patient 289 lb Weight Current Medications Sig/Cristine Start time Last Medication Dose Route Stop Time Status Admin Acetaminophen 650 MG .STK-MED ONE 06/25 0033 DC PO 06/25 0034 Acetaminophen 650 MG Q6P PRN 06/20 2230 AC 06/25 PO 0034 Acetaminophen 1,000 MG Q6P PRN 06/20 223 AC IV Amlodipine Besylate 10 MG DAILY 06/21 1000 AC 06/25 PO 0903 Amoxicillin/ 875 MG Q12 06/23 2200 AC 06/25 Clavulanate Potassium PO 0903 Carvedilol 6.25 MG BID 06/21 1000 AC 06/25 PO 0903 Clopidogrel Bisulfate 75 MG DAILY 06/21 1000 AC 06/25 PO 0903 Enoxaparin Sodium 40 MG DAILY 06/21 1000 AC 06/25 NE 0904 Fluoxetine HCl 20 MG DAILY 06/21 1000 AC 06/25 PO 0903 Furosemide 40 MG DAILY 06/21 1000 AC 06/25 PO 0903 Insulin Aspart 0 TIDAC 06/21 0800 AC 06/25 NE 1142 Lactobacillus 1 CAP DAILY 06/24 1000 AC 06/25 Acidophilus PO 0903 Levothyroxine Sodium 0.15 MG DAILY AC 06/21 0700 AC 06/25 PO 0628 Losartan Potassium 50 MG DAILY 06/21 1000 AC 06/25 PO 0903 Laboratory Tests 06/24/17 0648: Anion Gap 11, Estimated GFR > 60, BUN/Creatinine Ratio 25.7 H, CBC w Diff NO MAN DIFF REQ, RBC 4.62, MCV 85.8, MCH 28.5, RDW 14.1, MPV 9.5, Gran % 63.8, Lymphocytes % 25.5, Monocytes % 6.8, Eosinophils % 3.6, Basophils % 0.3, Absolute Granulocytes 4.8, Absolute Lymphocytes 1.9, Absolute Monocytes 0.5, Absolute Eosinophils 0.3, Absolute Basophils 0, PUBS MCHC 33.2 06/23/17 0700: Anion Gap 14, Estimated GFR > 60, BUN/Creatinine Ratio 25.7 H, CBC w Diff NO MAN DIFF REQ, RBC 4.74, MCV 85.7, MCH 28.7, RDW 14.4, MPV 9.4, Gran % 62.8, Lymphocytes % 24.1, Monocytes % 8.2, Eosinophils % 4.4, Basophils % 0.5, Absolute Granulocytes 4.4, Absolute Lymphocytes 1.7, Absolute Monocytes 0.6, Absolute Eosinophils 0.3, Absolute Basophils 0, PUBS MCHC 33.5 Microbiology 06/24 1003 STOOL: Clostridium difficile Toxin A & B - COMP Microbiology 06/24 1003 STOOL: Clostridium difficile Toxin A & B - COMP Vital Signs Date Time Temp Pulse Resp B/P B/P Pulse O2 O2 Flow FiO2 Mean Ox Delivery Rate 06/25 1506 98.0 61 2 140/90 93 Room Air 06/25 1121 97.9 70 18 124/64 06/25 0903 72 146/88 06/25 0903 72 142/86 06/25 0903 72 142/86 06/25 0612 97.8 72 20 146/88 92 06/24 2327 98.0 59 20 144/90 92 Room Air 06/24 2125 59 144/90 06/24 2123 98.0 59 20 144/90 92 Room Air
[2017-06-25] MEDS ORDERED: AUGMENTIN 875-1 EACH PO (15:59)
== END 2017-06-25 17:30 | DRG 603 ==
LOC: ERH 16:40 → 2NB 20:29 → ERHI 20:29 → ENRESERV 06-21 16:34 → ENTRNSPT 06-21 17:27 → EDTRNSPTSTS 06-21 17:28 → 2NB 06-21 17:30 → CMPTRNSPT 06-21 17:45 → ENPENDDIS 06-25 16:02 → 2NB 06-25 17:30
PROVIDERS: Emergency Medicine; Internal Medicine; Student in an Organized Health Care Education/Training Program
DX: L03.116 Cellulitis of left lower limb (principal); E11.8 Type 2 diabetes mellitus with unspecified complications; I48.91 Unspecified atrial fibrillation; I50.20 Unspecified systolic (congestive) heart failure; Z68.42 Body mass index [BMI] 45.0-49.9, adult; I87.2 Venous insufficiency (chronic) (peripheral); E66.01 Morbid (severe) obesity due to excess calories; I89.0 Lymphedema, not elsewhere classified; Z86.73 Personal history of transient ischemic attack (TIA), and cerebral infarction without residual deficits; Z79.84 Long term (current) use of oral hypoglycemic drugs; Z79.02 Long term (current) use of antithrombotics/antiplatelets; E78.5 Hyperlipidemia, unspecified; Z86.14 Personal history of Methicillin resistant Staphylococcus aureus infection; F32.9 Major depressive disorder, single episode, unspecified; E03.9 Hypothyroidism, unspecified; Z87.891 Personal history of nicotine dependence; F41.9 Anxiety disorder, unspecified; R09.82 Postnasal drip; R15.9 Full incontinence of feces; R32 Unspecified urinary incontinence
CPT/HCPCS: 2NBP; ERO; 36415; 71045; 81001; 82436; 87040; 87086; 87804; 87804-59; 93005; 93010; 97110-GO; 97116-GO; 97530-GO; J1650; J7040